=== PATIENT | female | born 1945 | race Caucasian/White ===

== ENCOUNTER 2018-06-22 15:26 | Inpatient (IN) ==
[2018-06-22] MEDS ORDERED: Bisacodyl 10 MG Supp RECTAL PRN (17:53)
[2018-06-22] MEDS ORDERED: Morphine Sulfate Inj 2 MG/ML Vial IV.PUSH PRN (17:53)
[2018-06-22] MEDS ORDERED: Magnesium Sulfate Inj 4 GM in Sodium Chlor 0.9% Inj 92 ML IV.SIG PRN (18:03)
[2018-06-22] MEDS ORDERED: Magnesium Sulfate Inj 2 GM in Sodium Chlor 0.9% Inj 96 ML IV.SIG PRN (18:03)
[2018-06-22] MEDS ORDERED: Potassium Chlor 20 mEq Premix 20 MEQ/100 ML PIGGYBACK IV.SIG PRN ×2 (18:03)
[2018-06-22] MEDS ORDERED: Magnesium Oxide 400 MG Tablet PO PRN (18:03)
[2018-06-22] MEDS ORDERED: Potassium Chloride Liq 20 MEQ/15 ML UDC PO PRN ×2 (18:03)
[2018-06-22] MEDS ORDERED: Sodium Phosphate Inj 30 MMOL in Sodium Chlor 0.9% Inj 250 ML IV.SIG PRN (18:03)
[2018-06-22] MEDS ORDERED: Potassium Phosphate 500 MG Soluble Tablet PO PRN ×2 (18:03)
[2018-06-22] MEDS ORDERED: Potassium Chlor 40 mEq Premix 40 MEQ/100 ML PIGGYBACK IV.SIG PRN ×2 (18:03)
[2018-06-22] MEDS ORDERED: Dextrose 50% in Water 50 ML Vial IV.PUSH PRN (18:03)
[2018-06-22] MEDS ORDERED: Potassium Phosphate Inj 30 MMOL in Sodium Chlor 0.9% Inj 250 ML IV.SIG PRN (18:03)
--- NOTE | 2018-06-22 18:20 | P.HPCC ---
History of Present Illness Service: Critical care medicine Primary Care Physician: UNKNOWN Chief Complaint: Abdominal pain History of Present Illness: This is a 73-year-old female. Date of admission 06/22/2018. Past medical history includes recurrent complicated urinary tract infection most recently E. coli, syncope frequent falls, coronary artery disease status post CABG, advanced age, congestive heart failure diastolic ejection fraction 55%, gastroesophageal reflux disease, depression/anxiety, essential hypertension, atrial fibrillation/2-1 flutter status post ablation with micro pacemaker placement/[employer], chronic anticoagulation, diverticulitis by history, internal and external hemorrhoids, bullous pemphigoid, osteoarthritis, hypothyroidism. She has known chronic mesenteric ischemia with SMA stenosis with collaterals present. Patient originally presented to [facility] 06/15 after syncopal event while playing cards at her [facility]. She fell backwards with a positive loss of conscious. CT of the brain revealed left occipital scalp hematoma. No acute intracranial findings. During her evaluation patient was evaluated by neurology/Dr. Garcia. EEG showed no epileptic activity. Orthostatics were positive. Ultrasound of the carotids revealed no significant stenosis negative stroke workup. Patient was evaluated by cardiology. 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 She divided by cardiology and EP cardiology. She had an AV node ablation with micro per minute pacemaker 06/20. She is currently on warfarin with a goal INR of 2.5-3.5. She was started on amiodarone 400 mg twice daily. Due to abdominal pain patient divided by gastroenterology. 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 There is also 9 mm thrombosed right SFA aneurysm. Vascular surgery was involved. Dr. Dacosta contacted Dr. Bustamante who read to evaluate the patient if transferred to [facility]. We are asked to accept this patient for evaluation. Patient has consumed diet today. She is currently not complaining of any abdominal pain. She is hemodynamically stable. In reviewing her labs her hemoglobin is 10.8. Normal white blood cell count. Her INR is 2.2. Her creatinine is 0.6. - Diagnosis (1) Chronic mesenteric ischemia (2) Celiac artery stenosis (3) Occlusion of superior mesenteric artery (4) History of cardiac radiofrequency ablation (5) Anticoagulation goal of INR 2.5 to 3.5 (6) Depression (7) Normocytic anemia (8) Recurrent UTI (9) Frequent falls (10) Hemorrhoids (11) Gastroesophageal reflux disease (12) Essential hypertension (13) Hypothyroidism (14) Advanced age (15) History of coronary artery bypass graft (16) History of mitral valve replacement (17) Generalized weakness (18) Recent head injury (19) Syncope (20) E. coli UTI Inpatient Certification: I certify that the inpatient services were ordered in accordance with Medicare regulations governing the order. This includes certification that hospital inpatient services are reasonable and necessary and in the case of services not specified as inpatient-only under 42 CFR 419.22(n), that they are appropriately provided as inpatient services in accordance to with the 2-midnight benchmark under 43 CFR 412.3(e) Estimated Total Length of Stay (Days): 5 Plans for Post Hospital Care: Not yet determined Review of Systems Constitutional: Reports anorexia, Reports fatigue, Reports lack of energy, Reports weakness, Denies body ache(s), Denies daytime sleepiness, Denies excessive sweating, Denies fever(s), Denies increased appetite, Denies malaise, Denies night sweats, Denies weight gain Eyes: Denies blind spots, Denies blurry vision, Denies bulging eyes, Denies change in vision, Denies double vision, Denies dry eyes, Denies requires corrective lenses, Denies sensitivity to light Ears, Nose, Mouth, and Throat: Reports bad breath, Reports poor balance, Denies abnormal hearing, Denies dry mouth, Denies hearing loss, Denies sore throat Cardiovascular: Reports fast heart rate, Denies chest pain, Denies chest pain at rest, Denies chest pain with activity, Denies shortness of breath, Denies shortness of breath with activity, Denies shortness of breath when lying down Respiratory: Denies chest congestion, Denies pain on inspiration, Denies pain with cough Gastrointestinal: Reports abdominal pain, Reports constipation, Reports nausea, Denies bloating, Denies change in stools, Denies coffee ground vomit, Denies vomiting, Denies vomiting blood Genitourinary: Reports urinary urgency, Denies pelvic pain, Denies urinary incontinence Musculoskeletal: Reports abnormal walking, Reports body aches, Denies decreased muscle mass, Denies muscle weakness, Denies neck pain, Denies stiffness Skin/Breast: Denies dry skin, Denies new lesions, Denies skin ulcer Neurologic: Denies confusion, Denies frequent falls, Denies headache(s), Denies lack of coordination, Denies loss of vision, Denies numbness, Denies restless legs, Denies convulsions, Denies sensory deficit Psychiatric: Reports anxiety, Reports depression, Denies confusion Endocrine: Denies cold intolerance, Denies excessive sweating Hematologic/Lymphatic: Denies easy bleeding, Denies easy bruising Allergic/Immunologic: Denies GI upset with certain foods PMFSH - Medical History Medical History: Medical History (Last Updated 06/22/18 @ 18:14 by Silver Dasilva MD) Atrial fibrillation Bullous pemphigoid Chronic anticoagulation Chronic mesenteric ischemia Congestive heart failure Depression Diverticulitis External hemorrhoids Gastroesophageal reflux disease Hypothyroidism Internal hemorrhoids Osteoarthritis Recurrent UTI - Surgical History Surgical History: Surgical History (Last Updated 06/22/18 @ 18:13 by Silver Dasilva MD) H/O maze procedure H/O mitral valve replacement H/O oophorectomy H/O tricuspid valve replacement H/O: hysterectomy History of colonoscopy Pacemaker S/P ablation of atrial flutter - Family History Family History: Family History (Last Updated 06/22/18 @ 18:14 by Silver Dasilva MD) Other Family history of heart disease - Social History I have reviewed the patient's Social History: Yes - Tobacco History Second Hand Smoke Exposure: No Tobacco Use In Past 30 Days: No Smoking Status: Never smoker - Alcohol History How Often Do You Have a Drink Containing Alcohol: Monthly or less - Substance Use History Substance History: No History of Abuse - Travel History History of Recent Travel: No Recent Travel in the [facility] Within the Last 8 Weeks: No Medications and Allergies Active Medications: Active Medications Acetaminophen (Tylenol) 650 mg PO Q6H PRN PRN Reason: Fever >101 F Hydrocodone Bitart/Acetaminophen ([place] 5/325) 1 tab PO Q4H PRN PRN Reason: PAIN SCALE 1 TO 5 Al Hydroxide/Mg Hydroxide (Milk Of Magnesia Liq) 30 ml PO Q12H PRN PRN Reason: Mild Constipation Albuterol (Albuterol Neb (Prn)) 2.5 mg NEB Q2HR NEB PRN PRN Reason: SHORTNESS OF BREATH/WHEEZING Amiodarone HCl (Cordarone) 400 mg PO Q12HR KELLEY Bisacodyl (Dulcolax Supp) 10 mg RECTAL DAILY PRN PRN Reason: SEVERE CONSITIPATION Chlorhexidine Gluconate (Chlorhexidine 2% Cloth) 3 pack TOPICAL DAILY@0400 KELLEY Stop: 06/28/18 03:59 Chlorhexidine Gluconate (Chlorhexidine 2% Cloth) 3 pack TOPICAL DAILY@0400 PRN PRN Reason: Extra cloth needed Stop: 06/28/18 03:59 Citalopram Hydrobromide (Celexa) 20 mg PO DAILY KELLEY Dextrose (D50w Vial) 50 ml IV.PUSH UNSCH PRN PRN Reason: PER HYPOGLYCEMIA PROTOCOL Glucagon (Glucagon Inj) 1 mg OTHER PRN PRN PRN Reason: for Hypoglycemia Protocol Cefepime HCl 1,000 mg/ Sodium (Chloride) 100 mls @ 200 mls/hr IV.SIG Q12H KELLEY Heparin Sodium/Dextrose (Heparin/D5w 25,000 U/250 Ml) 25,000 unit in 250 mls @ 0 mls/hr IV.CONT TITRATE PRN; Protocol PRN Reason: Per Protocol Magnesium Sulfate 4 gm/ Sodium (Chloride) 100 mls @ 50 mls/hr IV.SIG UNSCH PRN PRN Reason: For Magnesium 0.9 - 1.1 mg/dL Magnesium Sulfate 2 gm/ Sodium (Chloride) 100 mls @ 50 mls/hr IV.SIG UNSCH PRN PRN Reason: For Magnesium 1.2 - 1.6 mg/dL Potassium Chloride (Kcl 40 Meq Premix Inj) 40 meq in 100 mls @ 25 mls/hr IV.SIG Q2H PRN PRN Reason: For Potassium 2.8 - 3.2 mEq/L Potassium Chloride (Kcl 20 Meq Premix Inj) 20 meq in 100 mls @ 50 mls/hr IV.SIG Q2H PRN PRN Reason: For Potassium 3.3 - 3.5 mEq/L Potassium Chloride (Kcl 20 Meq Premix Inj) 20 meq in 100 mls @ 50 mls/hr IV.SIG Q2H PRN PRN Reason: For Potassium 2.8 - 3.2 mEq/L Potassium Phosphate 30 mmol/ (Sodium Chloride) 260 mls @ 42 mls/hr IV.SIG UNSCH PRN PRN Reason: SEE LABEL COMMENTS Sodium Phosphate 30 mmol/ (Sodium Chloride) 260 mls @ 42 mls/hr IV.SIG UNSCH PRN PRN Reason: For Phosphorus < 2.5 mg/dL Potassium Chloride (Kcl 40 Meq Premix Inj) 40 meq in 100 mls @ 25 mls/hr IV.SIG UNSCH PRN PRN Reason: For Potassium 3.3 - 3.5 mEq/L Insulin Aspart (Novolog Insulin Correctional Sugar Inj) 0 unit SQ Q6HR KELLEY; Protocol Lactulose (Lactulose Liq) 30 ml PO DAILY PRN PRN Reason: SEVERE CONSITIPATION Lisinopril (Prinivil) 10 mg PO BID [facility] Magnesium Oxide (Mag-Ox) 800 mg PO UNSCH PRN PRN Reason: For Magnesium 1.2 - 1.6 mg/dL Morphine Sulfate (Morphine Inj) 2 mg IV.PUSH Q2H PRN PRN Reason: PAIN SCALE 6 TO 10 Ondansetron HCl (Zofran Inj) 4 mg IV.PUSH Q6H PRN PRN Reason: NAUSEA OR VOMITING Pantoprazole Sodium (Protonix Inj) 40 mg IV.PUSH DAILY KELLEY Potassium Chloride (Kcl Liq) 40 meq PO UNSCH PRN PRN Reason: Potassium level 3.3-3.5 mEq/L Potassium Chloride (Kcl Liq) 40 meq PO UNSCH PRN PRN Reason: POTASSIUM LESS THAN 3.5 Potassium Phosphate (K-Phos Original) 2,000 mg PO Q4H PRN PRN Reason: Phosphorus Less Than 2.5 mg/dL Potassium Phosphate (K-Phos Original) 2,000 mg PO UNSCH PRN PRN Reason: SEE LABEL COMMENTS Senna/Docusate Sodium (Lashonda-Colace) 1 tab PO BID [facility] Sennosides (Senokot) 17.2 mg PO Q12H PRN PRN Reason: Moderate Constipation Sodium Chloride (Ns Flush) 2 ml IV.FLUSH BID [facility] Sodium Chloride (Ns Flush) 2 ml IV.FLUSH PRN PRN PRN Reason: FLUSH AFTER USING IV ACCESS Allergies Allergy/AdvReac Type Severity Reaction Status Date / Time gatifloxacin [From Tequin] Allergy Mild Rash, Verified 06/22/18 17:58 Generalized cefuroxime [From Ceftin] Allergy Generalized Verified 06/22/18 17:59 Rash cephalexin [From Keflex] Allergy Generalized Verified 06/22/18 18:02 Rash doxycycline Allergy Generalized Verified 06/22/18 18:00 Rash levofloxacin [From Levaquin] Allergy Anaphylaxis Verified 06/22/18 17:52 sulfadiazine Allergy Generalized Verified 06/22/18 18:03 Rash Exam Vital signs: Vital Signs 06/22/18 17:45 Temperature 98.4 F Pulse Rate 80 Blood Pressure 150/78 H Intake & Output 06/21/18 06/22/18 06/22/18 18:59 06:59 18:59 Weight 66.4 kg Other: Weight On Admission 66.4 kg - Constitutional no acute distress - Routine HEENT Exam Head: Present: normocephalic, atraumatic Eye: Present: EOMI, PERRL, normal accommodation ENT: Present: mucous membranes moist - Routine Neck Exam Present: supple, full ROM. Absent: JVD - Routine Chest/Breast/Axilla Exam Chest wall: Present: pacemaker. Absent: tenderness Breast: Absent: tenderness Axillae: Absent: lymphadenopathy - Routine Respiratory Exam Present: CTA bilaterally. Absent: accessory muscle use - Routine Cardiovascular Exam Present: RRR. Absent: S1, S2, murmur - Routine Abdominal Exam Present: soft, normoactive bowel sounds. Absent: tenderness, rigid - Routine Extremities Exam Absent: cyanosis, clubbing, edema - Routine Skin Exam Present: intact - Routine Neurological Exam Present: alert, oriented X3, CN II-XII intact. Absent: sensory deficit, motor deficit Septic Shock Reassessment Septic shock perfusion: reassessment completed Caprini VTE Risk Assessment Caprini VTE Risk Assessment: Moderate/High Risk (score >= 2) Caprini Risk Assessment Model: Point Value = 1 Point Value = 2 Point Value = 3 Point Value = 5 Age 41-60 Minor surgery BMI > 25 kg/m2 Swollen legs Varicose veins or History of unexplained or recurrent spontaneous Oral contraceptives or hormone replacement Sepsis (< 1 month) Serious lung disease, including pneumonia (< 1 month) Abnormal pulmonary function Acute myocardial infarction Congestive heart failure (< 1 month) History of inflammatory bowel disease Medical patient at bed rest Age 61-74 Arthroscopic surgery Major open surgery (> 45 min) Laparoscopic surgery (> 45 min) Malignancy Confined to bed (> 72 hours) Immobilizing plaster cast Central venous access Age >= 75 History of VTE Family history of VTE Factor V Leiden Prothrombin [id number] Lupus anticoagulant Anticardiolipin antibodies Elevated serum homocysteine Heparin-induced thrombocytopenia Other congenital or acquired thrombophilia Stroke (< 1 month) Elective arthroplasty Hip, pelvis, or leg fracture Acute spinal cord injury (< 1 month) Prophylaxis Regimen: Total Risk Factor Score Risk Level Prophylaxis Regimen 0-1 Low Early ambulation 2 Moderate Order ONE of the following: *Sequential Compression Device (SCD) *Heparin 5000 units SQ BID 3-4 Higher Order ONE of the following medications: *Heparin 5000 units SQ TID *Enoxaparin/Lovenox 40 mg SQ daily (WT < 150 kg, CrCl > 30 mL/min) *Enoxaparin/Lovenox 30 mg SQ daily (WT < 150 kg, CrCl > 10-29 mL/min) *Enoxaparin/Lovenox 30 mg SQ BID (WT < 150 kg, CrCl > 30 mL/min) AND/OR *Sequential Compression Device (SCD) 5 or more Highest Order ONE of the following medications: *Heparin 5000 units SQ TID (Preferred with Epidurals) *Enoxaparin/Lovenox 40 mg SQ daily (WT < 150 kg, CrCl > 30 mL/min) *Enoxaparin/Lovenox 30 mg SQ daily (WT < 150 kg, CrCl > 10-29 mL/min) *Enoxaparin/Lovenox 30 mg SQ BID (WT < 150 kg, CrCl > 30 mL/min) AND *Sequential Compression Device (SCD) Assessment and Plan - Problem List (1) Chronic mesenteric ischemia Code(s): K55.1 - Chronic vascular disorders of intestine Status: Chronic (2) Celiac artery stenosis Code(s): I77.4 - Celiac artery compression syndrome Status: Acute (3) Occlusion of superior mesenteric artery Code(s): K55.069 - Acute infarction of intestine, part and extent unspecified Status: Chronic (4) History of cardiac radiofrequency ablation Code(s): Z98.890 - Other specified postprocedural states Status: Acute (5) Anticoagulation goal of INR 2.5 to 3.5 Code(s): Z51.81 - Encounter for therapeutic drug level monitoring; Z79.01 - retirement (current) use of anticoagulants Status: Acute (6) Depression Code(s): F32.9 - Major depressive disorder, single episode, unspecified Status : Chronic (7) Normocytic anemia Code(s): D64.9 - Anemia, unspecified Status: Chronic (8) Recurrent UTI Code(s): N39.0 - Urinary tract infection, site not specified Status: Chronic (9) Frequent falls Code(s): R29.6 - Repeated falls Status: Chronic (10) Hemorrhoids Code(s): K64.9 - Unspecified hemorrhoids Status: Chronic (11) Gastroesophageal reflux disease Code(s): K21.9 - Gastro-esophageal reflux disease without esophagitis Status: Chronic (12) Essential hypertension Code(s): I10 - Essential (primary) hypertension Status: Chronic (13) Hypothyroidism Code(s): E03.9 - Hypothyroidism, unspecified Status: Chronic (14) Advanced age Code(s): R54 - Age-related physical debility Status: Chronic (15) History of coronary artery bypass graft Code(s): Z95.1 - Presence of aortocoronary bypass graft Status: Chronic (16) History of mitral valve replacement Code(s): Z95.2 - Presence of prosthetic heart valve Status: Chronic (17) Generalized weakness Code(s): R53.1 - Weakness Status: Chronic (18) Recent head injury Code(s): S09.90XA - Unspecified injury of head, initial encounter Status: Acute (19) Syncope Code(s): R55 - Syncope and collapse Status: Acute (20) E. coli UTI Code(s): N39.0 - Urinary tract infection, site not specified; B96.20 - Unspecified Escherichia coli [E. coli] as the cause of diseases classified elsewhere Status: Acute - Assessment and Plan Plan: Neuro/Psych: Major depressive disorder NOS Continue citalopram grams daily/home medication. Acetaminophen 650 mg p.o. every 6 hours as needed fever Hydrocodone/acetaminophen 5/325 1 tablet every 4 hours as needed pain 1 through 5 Morphine sulfate 2 mg IV every 2 hours as needed pain 6 through 10 CV: 2-1 atrial flutter status post AV node ablation with micro permanent pacemaker Chronic diastolic heart failure EF 55-60% Essential hypertension Coronary disease status post CABG Currently on amiodarone 400 mg twice daily. Status post AV ablation by Dr. Funk at [facility] 06/20 Previously on diltiazem 240 mg daily. This is currently on hold. Restart lisinopril 20 mg daily as 10 mg twice daily. Was on Isuprel. This is currently on hold. Resume spironolactone 25 mg daily. Resp: Nasal cannula to maintain saturations greater than equal to 92% Incentive spirometry while awake As needed albuterol aerosols every 2 hours as needed dyspnea GI: Gastroesophageal reflux disease History of internal and external hemorrhoids History of diverticulitis Constipation Advance diet as tolerated Pantoprazole for GI prophylaxis Docusate serum/senna 1 tablet twice daily for bowel regimen Abdominal CT angiogram revealed high-grade occlusion of the celiac artery origin 89%. Chronic superior mesenteric artery occlusion with collaterals present. Thrombosed 9 mm superior GI at [facility] recommended EGD and colonoscopy : Straight catheterization as needed Endo: History of hypothyroidism Check TSH Sliding scale insulin Accu-Cheks to maintain euglycemia Renal: Creatinine currently within normal limits Monitor urine output Accurate I's and O's Heme: Chronic anticoagulation with warfarin 1.5 mg daily at home. Normocytic anemia Monitor CBC daily. Follow trends. We will transition heparin drip when INR less than 2.0 for chronic mesenteric ischemia. ID: E. coli UTI Patient was treated with cefepime 1 g twice daily at [facility]. This was verified with the patient. This is verified in reviewing the medical records directly. Recheck UA MSK: Frequent falls Generalized weakness Advanced age PT evaluate and treat FEN: Replace electrolytes as clinically indicated Access -Utilize peripheral IV. Central line if indicated Prophylaxis -GI -pantoprazole -DVT -SCD/heparin drip Level 3 admission. Code Status: Full code Discussed Condition With: Patient. Dr. Bustamante. Care plan discussed all questions (6) Depression Qualifiers: Depression Type: unspecified Qualified Code(s): F32.9 - Major depressive disorder, single episode, unspecified (10) Hemorrhoids Qualifiers: Hemorrhoid type: unspecified Qualified Code(s): K64.9 - Unspecified hemorrhoids (11) Gastroesophageal reflux disease Qualifiers: Esophagitis presence: esophagitis presence not specified Qualified Code(s): K21.9 - Gastro-esophageal reflux disease without esophagitis (13) Hypothyroidism Qualifiers: Hypothyroidism type: unspecified Qualified Code(s): E03.9 - Hypothyroidism, unspecified (19) Syncope Qualifiers: Syncope type: unspecified Qualified Code(s): R55 - Syncope and collapse
[2018-06-22 19:07] LABS: Baso # (Auto) 0.1 th/mm3 (0.0-0.2); Baso % (Auto) 1.2 % (0.0-2.0); Eos # (Auto) 0.2 th/mm3 (0.0-0.4); Eos % (Auto) 4.5 % (0.0-4.0); Hematocrit 35.5 % (35.0-46.0); Mean Corpuscular HGB Conc 33.7 % (32.0-36.0); Mean Corpuscular Volume 103.9 fL (80.0-100.0); Mean Platelet Volume 6.2 fL (7.0-11.0); Mono # (Auto) 0.5 th/mm3 (0.0-0.9); Mono % (Auto) 10.3 % (0.0-8.0); Neut # (Auto) 3.4 th/mm3 (1.8-7.7); Platelet Count 174 th/mm3 (150-450); Red Blood Count 3.42 mil/mm3 (4.00-5.30); Red Cell Distribution Width 14.3 % (11.6-17.2); White Blood Count 5.3 th/mm3 (4.0-11.0)
--- NOTE | 2018-06-22 19:17 | XR ---
EXAM DATE: 06/22/2018 6:52 PM EST AGE/SEX: 73 years / Female INDICATIONS: Chest pain. Shortness of breath. CLINICAL DATA: This is the patient's initial encounter. Patient reports that signs and symptoms have been present for 1 day and indicates a pain score of 0/10. MEDICAL/SURGICAL HISTORY: None. None. COMPARISON: [facility], XR CHEST PA AND LAT, 03/19/2018. . FINDINGS: Multiple cardiac leads are coiled over the lower left chest. Moderate patient rotation towards the le ft. The heart is mildly enlarged, similar to prior examination. There are some patchy areas of infilt rate in the left lower lung which appear to cause loss of delineation of the medial left hemidiaphrag m. There is linear atelectasis in the lower right lung without focal infiltrate. There is focal event ration lateral right hemidiaphragm unchanged from prior. Evidence prior median sternotomy and valve r eplacement. CONCLUSION: Left lower lung partially consolidative infiltrate. Electronically signed by: Thad Harris MD Board Certified Radiologist 06/22/2018 7:15 PM EST
[2018-06-22 19:18] LABS: Activated Partial Thrombo Time 33.9 sec (23.4-31.7); INR 2.2 Ratio; Prothrombin Time 22.5 sec (9.8-11.6)
[2018-06-22 19:24] LABS: Alanine Aminotransferase 22 U/L (10-53); Albumin 3.2 g/dL (3.4-5.0); Amylase 43 U/L (25-115); Anion Gap 7 meq/L (5-15); Aspartate Aminotransferase 11 U/L (15-37); Blood Urea Nitrogen 12 mg/dL (7-18); Calcium 8.7 mg/dL (8.5-10.1); Carbon Dioxide 25.7 meq/L (21.0-32.0); Chloride 104 meq/L (98-107); Glomerular Filtration Rate 87 mL/min (>89); Glucose,Random 84 mg/dL (74-106); Lipase 120 U/L (73-393); Magnesium 2.4 mg/dL (1.5-2.5); Potassium 4.1 meq/L (3.5-5.1); Sodium 137 meq/L (136-145)
[2018-06-22 19:28] LABS: Alkaline Phosphatase 68 U/L (45-117); Phosphorus 2.3 mg/dL (2.5-4.9); Total Protein 6.2 g/dL (6.4-8.2)
[2018-06-22 19:31] LABS: Creatine Kinase 30 U/L (26-192)
[2018-06-22 19:32] LABS: Bacteria,Urine Occasional /hpf; Bilirubin,Urine Negative (Negative); Clarity,Urine Hazy (Clear); Color,Urine Yellow (Yellw/Straw); Glucose,Urine (UA) Negative (Negative); Leukocyte Esterase,Urine Small (Negative); Mucus,Urine Few /lpf (Occasional); Nitrite,Urine Negative (Negative); Squamous Epithelial Cell,Urine 1 /hpf (0-5)
[2018-06-22] MEDS: Senna/Docusate Sodium 8.6/50 MG Tablet PO SCH (20:26)
[2018-06-22] MEDS: Lisinopril 10 MG Tablet PO SCH (20:26)
[2018-06-22] MEDS: Amiodarone 200 MG Tablet PO SCH (20:26)
[2018-06-22] MEDS: Heparin Drip 25,000 UNIT/250 ML BAG IV.CONT PRN (20:28)
--- NOTE | 2018-06-22 20:41 | ECG ---
Date Performed: 06/22/2018 Time Performed: 18:44:58 PTAGE: 73 years EKG: Ventricular pacing Pacemaker rhythm - no further analysis Abnormal ECG NO PREVIOUS TRACING DOCTOR: oKfi Vigil Interpretating Date/Time 06/22/2018 20:39:16
[2018-06-23] MEDS: Insulin NovoLOG Aspart Correctional Sugar Inj SQ SCH ×4 (00:20→18:35)
[2018-06-23] MEDS ORDERED: Chlorhexidine Gluconate 2% 1 Pack (2 Cloths) TOPICAL PRN (04:00)
[2018-06-23 04:25] LABS: Eos # (Auto) 0.3 th/mm3 (0.0-0.4); Hematocrit 31.9 % (35.0-46.0); Hemoglobin 10.8 gm/dL (11.6-15.3); Lymph # (Auto) 1.2 th/mm3 (1.0-4.8); Lymph % (Auto) 27.6 % (9.0-44.0); Mean Corpuscular HGB Conc 33.9 % (32.0-36.0); Mean Corpuscular Hemoglobin 35.7 pg (27.0-34.0); Mean Corpuscular Volume 105.2 fL (80.0-100.0); Mean Platelet Volume 6.2 fL (7.0-11.0); Mono # (Auto) 0.5 th/mm3 (0.0-0.9); Mono % (Auto) 12.3 % (0.0-8.0); Neut # (Auto) 2.3 th/mm3 (1.8-7.7); Neut % (Auto) 53.1 % (16.0-70.0); Platelet Count 165 th/mm3 (150-450); Red Blood Count 3.04 mil/mm3 (4.00-5.30); Red Cell Distribution Width 14.3 % (11.6-17.2); White Blood Count 4.4 th/mm3 (4.0-11.0)
[2018-06-23 04:39] LABS: INR 2.2 Ratio; Prothrombin Time 22.6 sec (9.8-11.6)
[2018-06-23 04:45] LABS: Albumin 2.8 g/dL (3.4-5.0); Anion Gap 6 meq/L (5-15); Aspartate Aminotransferase 11 U/L (15-37); Blood Urea Nitrogen 9 mg/dL (7-18); Calcium 8.2 mg/dL (8.5-10.1); Carbon Dioxide 28.5 meq/L (21.0-32.0); Chloride 106 meq/L (98-107); Glomerular Filtration Rate 85 mL/min (>89); Glucose,Random 80 mg/dL (74-106); Magnesium 2.3 mg/dL (1.5-2.5); Potassium 4.1 meq/L (3.5-5.1); Sodium 140 meq/L (136-145)
[2018-06-23 04:46] LABS: Alanine Aminotransferase 19 U/L (10-53); Phosphorus 2.4 mg/dL (2.5-4.9)
[2018-06-23 04:48] LABS: Alkaline Phosphatase 57 U/L (45-117); Total Protein 5.6 g/dL (6.4-8.2)
[2018-06-23 05:20] LABS: Activated Partial Thrombo Time 105.2 sec (23.4-31.7)
[2018-06-23] MEDS: Chlorhexidine Gluconate 2% 1 Pack (2 Cloths) TOPICAL SCH (06:35)
--- NOTE | 2018-06-23 07:56 | P.PNCC ---
Subjective Subjective Remarks/Hospital Course: This is a 73-year-old female. Date of admission 06/22/2018. Past medical history includes recurrent complicated urinary tract infection most recently E. coli, syncope frequent falls, coronary artery disease status post CABG, advanced age, congestive heart failure diastolic ejection fraction 55%, gastroesophageal reflux disease, depression/anxiety, essential hypertension, atrial fibrillation/2-1 flutter status post ablation with micro pacemaker placement/[employer], chronic anticoagulation, diverticulitis by history, internal and external hemorrhoids, bullous pemphigoid, osteoarthritis, hypothyroidism. She has known chronic mesenteric ischemia with SMA stenosis with collaterals present. Patient originally presented to [facility] [place] 06/15 after syncopal event while playing cards at her [place]. She fell backwards with a positive loss of conscious. CT of the brain revealed left occipital scalp hematoma. No acute intracranial findings. During her evaluation patient was evaluated by neurology/Dr. Garcia. EEG showed no epileptic activity. Orthostatics were positive. Ultrasound of the carotids revealed no significant stenosis negative stroke workup. Patient was evaluated by cardiology. 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 She divided by cardiology and EP cardiology. She had an AV node ablation with micro per minute pacemaker 06/20. She is currently on warfarin with a goal INR of 2.5-3.5. She was started on amiodarone 400 mg twice daily. Due to abdominal pain patient divided by gastroenterology. 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 There is also 9 mm thrombosed right SFA aneurysm. Vascular surgery was involved. Dr. Dacosta contacted Dr. Bustamante who read to evaluate the patient if transferred to [facility]. We are asked to accept this patient for evaluation. Patient has consumed diet today. She is currently not complaining of any abdominal pain. She is hemodynamically stable. In reviewing her labs her hemoglobin is 10.8. Normal white blood cell count. Her INR is 2.2. Her creatinine is 0.6. Subjective: 06/23: Resting in chair in no acute distress. Complaining of constipation no bowel movement times 1 week. Blood pressure controlled. Paced adequately. On heparin drip 900 units an hour. Objective Vital Signs / I&O: Vital Signs 06/22/18 17:45 06/22/18 18:35 06/22/18 19:00 Temperature 98.4 F 98.4 F 98.3 F Pulse Rate 80 80 79 Respiratory Rate 18 18 Blood Pressure 150/78 H 150/78 H 142/85 H Pulse Oximetry 99 06/22/18 20:00 06/23/18 00:00 06/23/18 04:00 Temperature 98.0 F Pulse Rate 79 Respiratory Rate 18 18 Blood Pressure 121/69 Pulse Oximetry 99 97 06/23/18 07:38 Temperature Pulse Rate Respiratory Rate Blood Pressure Pulse Oximetry 97 Intake & Output 06/22/18 06/23/18 06/23/18 18:59 06:59 18:59 Intake Total 200 / 200 100 / 100 Output Total 700 / 700 Balance 200 / 200 -600 / -600 Weight 66.4 kg 68 kg Intake: IV 100 / 100 Maxipime Inj 1,000 MG In NS Inj 100 / 100 100 ML @ 200 mls/hr IV.SIG Q12H [facility] Rx#:[id number] Oral 200 / 200 Output: Urine 700 / 700 Other: Date of Last Bowel Movement 06/22/18 # Bowel Movements 1 1 Weight On Admission 66.4 kg Result Diagrams: 06/23/18 04:00 06/23/18 04:00 Imaging: Chest X-Ray 06/22/18 17:56 CONCLUSION: Left lower lung partially consolidative infiltrate. Objective Remarks: GENERAL: 73-year-old female resting in chair in no acute distress SKIN: Warm and dry. HEAD: Atraumatic. Normocephalic. EYES: Pupils equal and round. No scleral icterus. No injection or drainage. ENT: No nasal bleeding or discharge. Mucous membranes pink and moist. NECK: Trachea midline. No JVD. CARDIOVASCULAR: Ventricular paced. S1, S2 no S4. 1/6 systolic murmur. RESPIRATORY: No accessory muscle use. Clear to auscultation. Breath sounds equal bilaterally. GASTROINTESTINAL: Abdomen soft, non-tender, nondistended. Hepatic and splenic margins not palpable. MUSCULOSKELETAL: Extremities without clubbing, cyanosis, or edema. No obvious deformities. NEUROLOGICAL: Awake and alert. No obvious cranial nerve deficits. Motor grossly within normal limits. Five out of 5 muscle strength in the arms and legs. Normal speech. PSYCHIATRIC: Appropriate mood and affect; insight and judgment normal. Assessment and Plan - Problem List (1) Chronic mesenteric ischemia Code(s): K55.1 - Chronic vascular disorders of intestine Status: Chronic (2) Celiac artery stenosis Code(s): I77.4 - Celiac artery compression syndrome Status: Acute (3) Occlusion of superior mesenteric artery Code(s): K55.069 - Acute infarction of intestine, part and extent unspecified Status: Chronic (4) History of cardiac radiofrequency ablation Code(s): Z98.890 - Other specified postprocedural states Status: Acute (5) Anticoagulation goal of INR 2.5 to 3.5 Code(s): Z51.81 - Encounter for therapeutic drug level monitoring; Z79.01 - alf (current) use of anticoagulants Status: Acute (6) Depression Code(s): F32.9 - Major depressive disorder, single episode, unspecified Status : Chronic (7) Normocytic anemia Code(s): D64.9 - Anemia, unspecified Status: Chronic (8) Recurrent UTI Code(s): N39.0 - Urinary tract infection, site not specified Status: Chronic (9) Frequent falls Code(s): R29.6 - Repeated falls Status: Chronic (10) Hemorrhoids Code(s): K64.9 - Unspecified hemorrhoids Status: Chronic (11) Gastroesophageal reflux disease Code(s): K21.9 - Gastro-esophageal reflux disease without esophagitis Status: Chronic (12) Essential hypertension Code(s): I10 - Essential (primary) hypertension Status: Chronic (13) Hypothyroidism Code(s): E03.9 - Hypothyroidism, unspecified Status: Chronic (14) Advanced age Code(s): R54 - Age-related physical debility Status: Chronic (15) History of coronary artery bypass graft Code(s): Z95.1 - Presence of aortocoronary bypass graft Status: Chronic (16) History of mitral valve replacement Code(s): Z95.2 - Presence of prosthetic heart valve Status: Chronic (17) Generalized weakness Code(s): R53.1 - Weakness Status: Chronic (18) Recent head injury Code(s): S09.90XA - Unspecified injury of head, initial encounter Status: Acute (19) Syncope Code(s): R55 - Syncope and collapse Status: Acute (20) E. coli UTI Code(s): N39.0 - Urinary tract infection, site not specified; B96.20 - Unspecified Escherichia coli [E. coli] as the cause of diseases classified elsewhere Status: Acute - Assessment and Plan Plan: Neuro/Psych: Major depressive disorder NOS Continue citalopram grams daily/home medication. Acetaminophen 650 mg p.o. every 6 hours as needed fever Hydrocodone/acetaminophen 5/325 1 tablet every 4 hours as needed pain 1 through 5 Morphine sulfate 2 mg IV every 2 hours as needed pain 6 through 10 CV: 2-1 atrial flutter status post AV node ablation with micro permanent pacemaker Chronic diastolic heart failure EF 55-60% Essential hypertension Coronary disease status post CABG Currently on amiodarone 400 mg twice daily. Status post AV ablation by Dr. Funk at [facility] 06/20 Previously on diltiazem 240 mg daily. This is currently on hold. Restart lisinopril 20 mg daily as 10 mg twice daily. Was on Isuprel. This is currently on hold. Resume spironolactone 25 mg daily. Resp: Nasal cannula to maintain saturations greater than equal to 92% Incentive spirometry while awake As needed albuterol aerosols every 2 hours as needed dyspnea GI: Gastroesophageal reflux disease History of internal and external hemorrhoids History of diverticulitis Constipation Hypoalbuminemia Advance diet as tolerated Pantoprazole for GI prophylaxis Docusate serum/senna 1 tablet twice daily for bowel regimen add polythene glycol centigrams twice daily and lactulose 30 cc twice daily to bowel regimen. 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 Thrombosed 9 mm superior GI at [facility] recommended EGD and colonoscopy : Straight catheterization as needed Endo: History of hypothyroidism Check TSH Sliding scale insulin Accu-Cheks to maintain euglycemia Renal: Creatinine currently within normal limits Monitor urine output Accurate I's and O's Heme: Chronic anticoagulation with warfarin 1.5 mg daily at home. Macrocytic anemia Monitor CBC daily. Follow trends. We will transition heparin drip when INR less than 2.5 for chronic mesenteric ischemiaatrial fibrillate. Currently on 900 units an hour. INR currently 2.2 ID: E. coli UTI Patient was treated with cefepime 1 g twice daily at [facility]. This was verified with the patient. This is verified in reviewing the medical records directly. Recheck UA MSK: Frequent falls Generalized weakness Advanced age PT evaluate and treat FEN: Hypophosphatemia Replace electrolytes as clinically indicated Access -Utilize peripheral IV. Central line if indicated Prophylaxis -GI -pantoprazole -DVT -SCD/heparin drip Level 3 admission. (6) Depression Qualifiers: Depression Type: unspecified Qualified Code(s): F32.9 - Major depressive disorder, single episode, unspecified (10) Hemorrhoids Qualifiers: Hemorrhoid type: unspecified Qualified Code(s): K64.9 - Unspecified hemorrhoids (11) Gastroesophageal reflux disease Qualifiers: Esophagitis presence: esophagitis presence not specified Qualified Code(s): K21.9 - Gastro-esophageal reflux disease without esophagitis (13) Hypothyroidism Qualifiers: Hypothyroidism type: unspecified Qualified Code(s): E03.9 - Hypothyroidism, unspecified (19) Syncope Qualifiers: Syncope type: unspecified Qualified Code(s): R55 - Syncope and collapse
--- NOTE | 2018-06-23 09:41 | XR ---
EXAM DATE: 06/23/2018 9:34 AM EST AGE/SEX: 73 years / Female INDICATIONS: Constipation. CLINICAL DATA: This is the patient's initial encounter. Patient reports that signs and symptoms have been present for 1 week and indicates a pain score of 0/10. MEDICAL/SURGICAL HISTORY: None. Hysterectomy. Oophorectomy. COMPARISON: No prior exams available for comparison. FINDINGS: The abdominal bowel gas pattern is normal. No abnormal masses, calcifications, or organomegaly is s een. The osseous structures are unremarkable. Moderate vascular calcifications. Degenerative changes lower lumbar spine. CONCLUSION: Nonspecific bowel gas pattern, only minimal stool. Electronically signed by: Rivera Bull MD Board Certified Radiologist 06/23/2018 9:39 AM EST
[2018-06-23] MEDS ORDERED: Sodium Glycerophosphate Inj 15 MMOL in Sodium Chlor 0.9% Inj 150 ML IV.SIG ONE (10:00)
--- NOTE | 2018-06-23 10:57 | P.CONVS ---
History of Present Illness Service: vascular surgery Consult date: 06/23/18 Primary Care Provider: UNKNOWN Chief Complaint: Abdominal pain History of Present Illness: 73-year-old female with a past medical history of atrial flutter and chronic abdominal pain. The patient was was diagnosed with superior mesenteric artery occlusion approximately 2 years ago. She has been having postprandial abdominal pain. She reports left sided abdominal pain that was previously diagnosed as diverticulitis and constipation. She denies any chest pain or shortness of breath. Review of Systems All other systems reviewed negative except as stated in HPI [facility] - Medical History Medical History: Medical History (Last Updated 06/22/18 @ 18:14 by Silver Dasilva MD) Atrial fibrillation Bullous pemphigoid Chronic anticoagulation Chronic mesenteric ischemia Congestive heart failure Depression Diverticulitis External hemorrhoids Gastroesophageal reflux disease Hypothyroidism Internal hemorrhoids Osteoarthritis Recurrent UTI - Surgical History Surgical History: Surgical History (Last Updated 06/22/18 @ 18:13 by Silver Dasilva MD) H/O maze procedure H/O mitral valve replacement H/O oophorectomy H/O tricuspid valve replacement H/O: hysterectomy History of colonoscopy Pacemaker S/P ablation of atrial flutter - Family History Family History: Family History (Last Updated 06/22/18 @ 18:14 by Silver Dasilva MD) Other Family history of heart disease - Tobacco History Second Hand Smoke Exposure: No Tobacco Use In Past 30 Days: No Smoking Status: Never smoker - Alcohol History How Often Do You Have a Drink Containing Alcohol: Monthly or less - Substance Use History Substance History: No History of Abuse - Travel History History of Recent Travel: No Recent Travel in the [facility] Within the Last 8 Weeks: No Medications and Allergies Active Medications: Active Medications Acetaminophen (Tylenol) 650 mg PO Q6H PRN PRN Reason: Fever >101 F Hydrocodone Bitart/Acetaminophen (Kersey 5/325) 1 tab PO Q4H PRN PRN Reason: PAIN SCALE 1 TO 5 Al Hydroxide/Mg Hydroxide (Milk Of Magnesia Liq) 30 ml PO Q12H PRN PRN Reason: Mild Constipation Last Admin: 06/22/18 20:26 Dose: 30 ml Albuterol (Albuterol Neb (Prn)) 2.5 mg NEB Q2HR NEB PRN PRN Reason: SHORTNESS OF BREATH/WHEEZING Amiodarone HCl (Cordarone) 400 mg PO Q12HR [facility] Last Admin: 06/22/18 20:26 Dose: 400 mg Bisacodyl (Dulcolax Supp) 10 mg RECTAL DAILY PRN PRN Reason: SEVERE CONSITIPATION Chlorhexidine Gluconate (Chlorhexidine 2% Cloth) 3 pack TOPICAL DAILY@0400 [facility] Stop: 06/28/18 03:59 Last Admin: 06/23/18 06:35 Dose: Not Given Chlorhexidine Gluconate (Chlorhexidine 2% Cloth) 3 pack TOPICAL DAILY@0400 PRN PRN Reason: Extra cloth needed Stop: 06/28/18 03:59 Citalopram Hydrobromide (Celexa) 20 mg PO DAILY [facility] Dextrose (D50w Vial) 50 ml IV.PUSH UNSCH PRN PRN Reason: PER HYPOGLYCEMIA PROTOCOL Glucagon (Glucagon Inj) 1 mg OTHER PRN PRN PRN Reason: for Hypoglycemia Protocol Cefepime HCl 1,000 mg/ Sodium (Chloride) 100 mls @ 200 mls/hr IV.SIG Q12H [facility] Last Infusion: 06/22/18 21:00 Dose: Infused Heparin Sodium/Dextrose (Heparin/D5w 25,000 U/250 Ml) 25,000 unit in 250 mls @ 12 mls/hr IV.CONT TITRATE PRN; Protocol PRN Reason: Per Protocol Last Admin: 06/22/18 20:28 Dose: 1,200 units/hr, 12 mls/hr Magnesium Sulfate 4 gm/ Sodium (Chloride) 100 mls @ 50 mls/hr IV.SIG UNSCH PRN PRN Reason: For Magnesium 0.9 - 1.1 mg/dL Magnesium Sulfate 2 gm/ Sodium (Chloride) 100 mls @ 50 mls/hr IV.SIG UNSCH PRN PRN Reason: For Magnesium 1.2 - 1.6 mg/dL Potassium Chloride (Kcl 40 Meq Premix Inj) 40 meq in 100 mls @ 25 mls/hr IV.SIG Q2H PRN PRN Reason: For Potassium 2.8 - 3.2 mEq/L Potassium Chloride (Kcl 20 Meq Premix Inj) 20 meq in 100 mls @ 50 mls/hr IV.SIG Q2H PRN PRN Reason: For Potassium 3.3 - 3.5 mEq/L Potassium Chloride (Kcl 20 Meq Premix Inj) 20 meq in 100 mls @ 50 mls/hr IV.SIG Q2H PRN PRN Reason: For Potassium 2.8 - 3.2 mEq/L Potassium Phosphate 30 mmol/ (Sodium Chloride) 260 mls @ 42 mls/hr IV.SIG UNSCH PRN PRN Reason: SEE LABEL COMMENTS Sodium Phosphate 30 mmol/ (Sodium Chloride) 260 mls @ 42 mls/hr IV.SIG UNSCH PRN PRN Reason: For Phosphorus < 2.5 mg/dL Potassium Chloride (Kcl 40 Meq Premix Inj) 40 meq in 100 mls @ 25 mls/hr IV.SIG UNSCH PRN PRN Reason: For Potassium 3.3 - 3.5 mEq/L Sodium Glycerophosphate 15 (mmol/ Sodium Chloride) 165 mls @ 40 mls/hr IV.SIG ONCE ONE Stop: 06/23/18 14:07 Insulin Aspart (Novolog Insulin Correctional Sugar Inj) 0 unit SQ Q6HR [facility]; Protocol Last Admin: 06/23/18 06:35 Dose: Not Given Lactulose (Lactulose Liq) 30 ml PO DAILY PRN PRN Reason: SEVERE CONSITIPATION Lactulose (Lactulose Liq) 30 ml PO BID [facility] Lisinopril (Prinivil) 10 mg PO BID [facility] Last Admin: 06/22/18 20:26 Dose: 10 mg Magnesium Oxide (Mag-Ox) 800 mg PO UNSCH PRN PRN Reason: For Magnesium 1.2 - 1.6 mg/dL Morphine Sulfate (Morphine Inj) 2 mg IV.PUSH Q2H PRN PRN Reason: PAIN SCALE 6 TO 10 Ondansetron HCl (Zofran Inj) 4 mg IV.PUSH Q6H PRN PRN Reason: NAUSEA OR VOMITING Pantoprazole Sodium (Protonix Inj) 40 mg IV.PUSH DAILY [facility] Polyethylene Glycol (Miralax) 17 gm PO BID [facility] Potassium Chloride (Kcl Liq) 40 meq PO UNSCH PRN PRN Reason: Potassium level 3.3-3.5 mEq/L Potassium Chloride (Kcl Liq) 40 meq PO UNSCH PRN PRN Reason: POTASSIUM LESS THAN 3.5 Potassium Phosphate (K-Phos Original) 2,000 mg PO Q4H PRN PRN Reason: Phosphorus Less Than 2.5 mg/dL Potassium Phosphate (K-Phos Original) 2,000 mg PO UNSCH PRN PRN Reason: SEE LABEL COMMENTS Senna/Docusate Sodium (Lashonda-Colace) 1 tab PO BID [facility] Last Admin: 06/22/18 20:26 Dose: 1 tab Sennosides (Senokot) 17.2 mg PO Q12H PRN PRN Reason: Moderate Constipation Sodium Chloride (Ns Flush) 2 ml IV.FLUSH BID [facility] Last Admin: 06/22/18 21:48 Dose: Not Given Sodium Chloride (Ns Flush) 2 ml IV.FLUSH PRN PRN PRN Reason: FLUSH AFTER USING IV ACCESS Spironolactone (Aldactone) 25 mg PO DAILY [facility] Allergies Allergy/AdvReac Type Severity Reaction Status Date / Time gatifloxacin [From Tequin] Allergy Mild Rash, Verified 06/22/18 17:58 Generalized cefuroxime [From Ceftin] Allergy Generalized Verified 06/22/18 17:59 Rash cephalexin [From Keflex] Allergy Generalized Verified 06/22/18 18:02 Rash doxycycline Allergy Generalized Verified 06/22/18 18:00 Rash levofloxacin [From Levaquin] Allergy Anaphylaxis Verified 06/22/18 17:52 sulfadiazine Allergy Generalized Verified 06/22/18 18:03 Rash Physical Exam Vital Signs / I&O: Vital Signs 06/22/18 17:45 06/22/18 18:35 06/22/18 19:00 Temperature 98.4 F 98.4 F 98.3 F Pulse Rate 80 80 79 Respiratory Rate 18 18 Blood Pressure 150/78 H 150/78 H 142/85 H Pulse Oximetry 99 06/22/18 20:00 06/23/18 00:00 06/23/18 04:00 Temperature 98.0 F Pulse Rate 79 Respiratory Rate 18 18 Blood Pressure 121/69 Pulse Oximetry 99 97 06/23/18 07:38 Temperature Pulse Rate Respiratory Rate Blood Pressure Pulse Oximetry 97 Intake & Output 06/22/18 06/23/18 06/23/18 18:59 06:59 18:59 Intake Total 200 / 200 100 / 100 Output Total 700 / 700 Balance 200 / 200 -600 / -600 Weight 66.4 kg 68 kg Intake: IV 100 / 100 Maxipime Inj 1,000 MG In NS Inj 100 / 100 100 ML @ 200 mls/hr IV.SIG Q12H [facility] Rx#:[id number] Oral 200 / 200 Output: Urine 700 / 700 Other: Date of Last Bowel Movement 06/22/18 # Bowel Movements 1 1 Weight On Admission 66.4 kg Neuro: Alert oriented x3 HEENT: Normocephalic atraumatic Neck: Supple Heart: S1-S2, regular rate Lungs: Clear to auscultate Abdomen: Soft, distended, nontender to palpation, no rebound, no peritoneal sign Vascular: Palpable femoral pulses bilaterally Extremities: Warm, dry Laboratory Results - last 24 hr 06/22/18 06/22/18 06/22/18 06:57 06:57 06:57 WBC 5.3 RBC 3.42 L Hgb 12.0 Hct 35.5 MCV 103.9 H MCH 35.0 H MCHC 33.7 RDW 14.3 Plt Count 174 MPV 6.2 L Neut % (Auto) 65.0 Lymph % (Auto) 19.0 [place] % (Auto) 10.3 H Eos % (Auto) 4.5 H Baso % (Auto) 1.2 Neut # (Auto) 3.4 Lymph # (Auto) 1.0 [place] # (Auto) 0.5 Eos # (Auto) 0.2 Baso # (Auto) 0.1 WBC Differential . Differential Comment Auto diff final PT INR APTT Fibrinogen Sodium Potassium Chloride Carbon Dioxide Anion Gap BUN Creatinine Estimated GFR POC Glucose Random Glucose Lactic Acid 0.8 Calcium Phosphorus Magnesium Total Bilirubin AST ALT Alkaline Phosphatase Ammonia 14 Total Creatine Kinase Total Protein Albumin Amylase Lipase Urine Color Urine Clarity Urine pH Ur Specific [place] Urine Protein Urine Glucose (UA) Urine Ketones Urine Occult Blood Urine Nitrate Urine Bilirubin Urine Urobilinogen Ur Leukocyte Esterase Urine RBC Urine WBC Ur Squamous Epith Cells Urine Bacteria Urine Mucus Micro UA Comment Ur Microscopic Review Urine Culture Comments Nasal Screen MRSA (PCR) 06/22/18 06/22/18 06/22/18 06:57 06:57 18:30 WBC RBC Hgb Hct MCV MCH MCHC RDW Plt Count MPV Neut % (Auto) Lymph % (Auto) [place] % (Auto) Eos % (Auto) Baso % (Auto) Neut # (Auto) Lymph # (Auto) [place] # (Auto) Eos # (Auto) Baso # (Auto) WBC Differential Differential Comment PT 22.5 H INR 2.2 APTT 33.9 H Fibrinogen 303 Sodium 137 Potassium 4.1 Chloride 104 Carbon Dioxide 25.7 Anion Gap 7 BUN 12 Creatinine 0.67 Estimated GFR 87 L POC Glucose Random Glucose 84 Lactic Acid Calcium 8.7 Phosphorus 2.3 L Magnesium 2.4 Total Bilirubin 0.5 AST 11 L ALT 22 Alkaline Phosphatase 68 Ammonia Total Creatine Kinase 30 Total Protein 6.2 L Albumin 3.2 L Amylase 43 Lipase 120 Urine Color Yellow Urine Clarity Hazy H Urine pH 5.0 Ur Specific [place] 1.010 Urine Protein Negative Urine Glucose (UA) Negative Urine Ketones Negative Urine Occult Blood Small H Urine Nitrate Negative Urine Bilirubin Negative Urine Urobilinogen Less than 2 Ur Leukocyte Esterase Small H Urine RBC Less than 1 Urine WBC 2 Ur Squamous Epith Cells 1 Urine Bacteria Occasional H Urine Mucus Few H Micro UA Comment Culture not ind Ur Microscopic Review Not Reportable Urine Culture Comments Culture not ind Nasal Screen MRSA (PCR) 06/23/18 06/23/18 06/23/18 00:07 00:15 04:00 WBC 4.4 RBC 3.04 L Hgb 10.8 L Hct 31.9 L MCV 105.2 H MCH 35.7 H MCHC 33.9 RDW 14.3 Plt Count 165 MPV 6.2 L Neut % (Auto) 53.1 Lymph % (Auto) 27.6 [place] % (Auto) 12.3 H Eos % (Auto) 6.0 H Baso % (Auto) 1.0 Neut # (Auto) 2.3 Lymph # (Auto) 1.2 [place] # (Auto) 0.5 Eos # (Auto) 0.3 Baso # (Auto) 0.0 WBC Differential . Differential Comment Auto diff final PT INR APTT Fibrinogen Sodium Potassium Chloride Carbon Dioxide Anion Gap BUN Creatinine Estimated GFR POC Glucose 102 Random Glucose Lactic Acid Calcium Phosphorus Magnesium Total Bilirubin AST ALT Alkaline Phosphatase Ammonia Total Creatine Kinase Total Protein Albumin Amylase Lipase Urine Color Urine Clarity Urine pH Ur Specific [place] Urine Protein Urine Glucose (UA) Urine Ketones Urine Occult Blood Urine Nitrate Urine Bilirubin Urine Urobilinogen Ur Leukocyte Esterase Urine RBC Urine WBC Ur Squamous Epith Cells Urine Bacteria Urine Mucus Micro UA Comment Ur Microscopic Review Urine Culture Comments Nasal Screen MRSA (PCR) Not detected 06/23/18 06/23/18 06/23/18 04:00 04:00 05:58 WBC RBC Hgb Hct MCV MCH MCHC RDW Plt Count MPV Neut % (Auto) Lymph % (Auto) [place] % (Auto) Eos % (Auto) Baso % (Auto) Neut # (Auto) Lymph # (Auto) [place] # (Auto) Eos # (Auto) Baso # (Auto) WBC Differential Differential Comment PT 22.6 H INR 2.2 APTT 105.2 H* D 62.0 H D Fibrinogen Sodium 140 Potassium 4.1 Chloride 106 Carbon Dioxide 28.5 Anion Gap 6 BUN 9 Creatinine 0.68 Estimated GFR 85 L POC Glucose Random Glucose 80 Lactic Acid Calcium 8.2 L Phosphorus 2.4 L Magnesium 2.3 Total Bilirubin 0.6 AST 11 L ALT 19 Alkaline Phosphatase 57 Ammonia Total Creatine Kinase Total Protein 5.6 L D Albumin 2.8 L Amylase Lipase Urine Color Urine Clarity Urine pH Ur Specific [place] Urine Protein Urine Glucose (UA) Urine Ketones Urine Occult Blood Urine Nitrate Urine Bilirubin Urine Urobilinogen Ur Leukocyte Esterase Urine RBC Urine WBC Ur Squamous Epith Cells Urine Bacteria Urine Mucus Micro UA Comment Ur Microscopic Review Urine Culture Comments Nasal Screen MRSA (PCR) Impressions Chest X-Ray 06/22/18 17:56 CONCLUSION: Left lower lung partially consolidative infiltrate. Abdomen X-Ray 06/23/18 00:00 CONCLUSION: Nonspecific bowel gas pattern, only minimal stool. Assessment and Plan - Assessment (1) Chronic mesenteric ischemia Code(s): K55.1 - Chronic vascular disorders of intestine Status: Chronic - Plan Patient has typical/atypical symptoms of chronic mesenteric ischemia. I reviewed the CT angiography. There is a long segment chronic occlusion of the superior mesenteric artery. This lesion is not amendable for endovascular revascularization. Large celiac artery with abundant of collateral flow to the distal superior mesenteric artery. There is 80% stenosis of the proximal celiac artery. I believe that her symptoms will prove with celiac artery stenting given the size of the vessel and the evidence of collateral flow to the distal superior mesenteric artery. I explained to the patient her options which includes antegrade aorta mesenteric bypass versus celiac artery stenting. She agreed to proceed with the celiac artery stenting with the understanding that she may eventually need bypass surgery. I will plan angiogram in a.m. Den Rankin MD [facility]
[2018-06-23] MEDS: Pantoprazole Inj 40 MG Vial IV.PUSH SCH (11:14)
[2018-06-23] MEDS: Polyethylene Glycol 3350 17 GM Packet PO SCH ×2 (11:14→21:09)
[2018-06-23] MEDS: Amiodarone 200 MG Tablet PO SCH ×2 (11:15→21:07)
[2018-06-23] MEDS: Lisinopril 10 MG Tablet PO SCH ×2 (11:15→21:09)
[2018-06-23] MEDS: Spironolactone 25 MG Tablet PO SCH (11:15)
[2018-06-23] MEDS: Senna/Docusate Sodium 8.6/50 MG Tablet PO SCH ×2 (11:15→21:09)
[2018-06-23] MEDS: Citalopram 20 MG Tablet PO SCH (11:15)
[2018-06-23] MEDS: Acetaminophen 325 MG Tablet PO PRN (21:18)
[2018-06-23] MEDS: Heparin Drip 25,000 UNIT/250 ML BAG IV.CONT PRN (22:40)
[2018-06-24 04:04] LABS: Baso # (Auto) 0.1 th/mm3 (0.0-0.2); Baso % (Auto) 1.2 % (0.0-2.0); Eos # (Auto) 0.2 th/mm3 (0.0-0.4); Eos % (Auto) 4.3 % (0.0-4.0); Hemoglobin 11.4 gm/dL (11.6-15.3); Lymph # (Auto) 1.2 th/mm3 (1.0-4.8); Lymph % (Auto) 26.5 % (9.0-44.0); Mean Corpuscular HGB Conc 33.6 % (32.0-36.0); Mean Corpuscular Hemoglobin 34.6 pg (27.0-34.0); Mean Corpuscular Volume 103.2 fL (80.0-100.0); Mean Platelet Volume 6.8 fL (7.0-11.0); Mono # (Auto) 0.5 th/mm3 (0.0-0.9); Mono % (Auto) 11.9 % (0.0-8.0); Neut # (Auto) 2.5 th/mm3 (1.8-7.7); Neut % (Auto) 56.1 % (16.0-70.0); Platelet Count 193 th/mm3 (150-450); Red Blood Count 3.29 mil/mm3 (4.00-5.30); Red Cell Distribution Width 14.6 % (11.6-17.2); White Blood Count 4.4 th/mm3 (4.0-11.0)
[2018-06-24 04:14] LABS: Activated Partial Thrombo Time 58.9 sec (23.4-31.7); INR 1.9 Ratio; Prothrombin Time 19.5 sec (9.8-11.6)
[2018-06-24 04:27] LABS: Calcium 8.1 mg/dL (8.5-10.1); Carbon Dioxide 28.6 meq/L (21.0-32.0); Magnesium 2.3 mg/dL (1.5-2.5); Potassium 3.8 meq/L (3.5-5.1)
[2018-06-24 04:40] LABS: Phosphorus 2.9 mg/dL (2.5-4.9); Thyroid Stimulating Hormone 4.12 uIU/mL (0.358-3.740)
[2018-06-24] MEDS ORDERED: Sodium Chlor 0.9% Inj 500 ML IV.CONT ONE (05:30)
[2018-06-24] MEDS ORDERED: Chlorhexidine Gluconate 2% 1 Pack (2 Cloths) TOPICAL ONE (05:30)
[2018-06-24] MEDS: Lisinopril 10 MG Tablet PO SCH ×2 (08:41→21:08)
[2018-06-24] MEDS: Amiodarone 200 MG Tablet PO SCH ×2 (08:42→21:08)
[2018-06-24] MEDS: Citalopram 20 MG Tablet PO SCH (08:42)
[2018-06-24] MEDS: Polyethylene Glycol 3350 17 GM Packet PO SCH ×2 (08:42→21:08)
[2018-06-24] MEDS: Spironolactone 25 MG Tablet PO SCH (08:42)
[2018-06-24] MEDS: Senna/Docusate Sodium 8.6/50 MG Tablet PO SCH ×2 (08:43→21:08)
[2018-06-24] MEDS: Pantoprazole Inj 40 MG Vial IV.PUSH SCH (08:43)
--- NOTE | 2018-06-24 13:32 | P.PNIM ---
Subjective Interval history: Transfer service from critical care team this morning. Patient is comfortable when seen today. She is n.p.o. and awaiting celiac stenting. No new complaints. Physical Exam Vital signs: Vital Signs 06/23/18 16:00 06/23/18 20:00 06/24/18 00:00 Temperature 98.5 F 98.3 F 98.6 F Pulse Rate 79 84 80 Respiratory Rate 15 16 16 Blood Pressure 114/64 128/78 114/63 Pulse Oximetry 97 95 95 06/24/18 04:00 06/24/18 07:00 06/24/18 08:00 Temperature 98.5 F 98.7 F Pulse Rate 80 79 80 Respiratory Rate 16 16 Blood Pressure 125/66 150/82 H Pulse Oximetry 93 L 99 06/24/18 09:00 06/24/18 10:00 06/24/18 11:00 Temperature Pulse Rate 79 81 83 Respiratory Rate Blood Pressure Pulse Oximetry 99 06/24/18 12:00 Temperature 98.4 F Pulse Rate 80 Respiratory Rate 15 Blood Pressure 143/85 H Pulse Oximetry 99 Intake & Output 06/23/18 06/24/18 06/24/18 18:59 06:59 18:59 Intake Total 985 / 985 670 / 670 Balance 985 / 985 670 / 670 Weight 68 kg Intake: IV 265 / 265 350 / 350 Heparin/D5W 25,000 U/250 mL 25, 250 / 250 000 unit In 250 ml @ 1,200 UNITS/HR 12 mls/hr IV.CONT TITRATE PRN Rx#:[id number] Maxipime Inj 1,000 MG In NS Inj 100 / 100 100 / 100 100 ML @ 200 mls/hr IV.SIG Q12H KELLEY Rx#:[id number] Glycophos Inj 15 MMOL In NS Inj 165 / 165 150 ML @ 40 mls/hr IV.SIG ONCE ONE Rx#:[id number] Oral 720 / 720 320 / 320 Other: # Voids 5 2 Date of Last Bowel Movement 06/23/18 06/23/18 06/23/18 # Bowel Movements 3 1 Narrative: GENERAL: NAD, A&Ox3 HEAD: Normocephalic. NECK: Supple, trachea midline. No lymphadenopathy. EYES: No scleral icterus. No injection or drainage. CARDIOVASCULAR: Regular rate and rhythm without murmurs, gallops, or rubs. RESPIRATORY: Breath sounds equal bilaterally. No accessory muscle use. GASTROINTESTINAL: Abdomen soft, non-tender, nondistended. MUSCULOSKELETAL: No cyanosis, or edema. SKIN: Warm and dry. NEURO: No focal neurological deficits. 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 Celiac artery stenosis is capable of being stented and his procedures planned for 06/24/2018. Celiac artery stenosis Superior mesenteric artery stenosis Stenting of celiac artery stenosis planned today Patient is ready for procedure No medical contraindications to procedure major depressive disorder NOS Continue citalopram 21 atrial flutter history History of coronary artery disease History of CABG Permanent pacemaker in place Follow clinically Continue amiodarone Continue spironolactone Continue lisinopril Resume warfarin postprocedure Hypertension Continue baseline treatment Follow blood pressures Adjust treatments as needed DVT prophylaxis Heparin
--- NOTE | 2018-06-24 13:37 | P.PNVS ---
Subjective Subjective/Hospital Course: Complain of mild left sided abdominal pain Objective Vital Signs / I&O: Vital Signs 06/23/18 16:00 06/23/18 20:00 06/24/18 00:00 Temperature 98.5 F 98.3 F 98.6 F Pulse Rate 79 84 80 Respiratory Rate 15 16 16 Blood Pressure 114/64 128/78 114/63 Pulse Oximetry 97 95 95 06/24/18 04:00 06/24/18 07:00 06/24/18 08:00 Temperature 98.5 F 98.7 F Pulse Rate 80 79 80 Respiratory Rate 16 16 Blood Pressure 125/66 150/82 H Pulse Oximetry 93 L 99 06/24/18 09:00 06/24/18 10:00 06/24/18 11:00 Temperature Pulse Rate 79 81 83 Respiratory Rate Blood Pressure Pulse Oximetry 99 06/24/18 12:00 06/24/18 13:00 Temperature 98.4 F Pulse Rate 80 82 Respiratory Rate 15 Blood Pressure 143/85 H Pulse Oximetry 99 Intake & Output 06/23/18 06/24/18 06/24/18 18:59 06:59 18:59 Intake Total 985 / 985 670 / 670 Balance 985 / 985 670 / 670 Weight 68 kg Intake: IV 265 / 265 350 / 350 Heparin/D5W 25,000 U/250 mL 25, 250 / 250 000 unit In 250 ml @ 1,200 UNITS/HR 12 mls/hr IV.CONT TITRATE PRN Rx#:[id number] Maxipime Inj 1,000 MG In NS Inj 100 / 100 100 / 100 100 ML @ 200 mls/hr IV.SIG Q12H KELLEY Rx#:[id number] Glycophos Inj 15 MMOL In NS Inj 165 / 165 150 ML @ 40 mls/hr IV.SIG ONCE ONE Rx#:[id number] Oral 720 / 720 320 / 320 Other: # Voids 5 2 Date of Last Bowel Movement 06/23/18 06/23/18 06/23/18 # Bowel Movements 3 1 Physical Exam: Abdomen soft nontender nondistended, no peritoneal signs Laboratory Results - last 24 hr 06/23/18 06/23/18 06/24/18 13:37 20:04 03:02 WBC 4.4 RBC 3.29 L Hgb 11.4 L Hct 34.0 L MCV 103.2 H MCH 34.6 H MCHC 33.6 RDW 14.6 Plt Count 193 MPV 6.8 L Neut % (Auto) 56.1 Lymph % (Auto) 26.5 Benson % (Auto) 11.9 H Eos % (Auto) 4.3 H Baso % (Auto) 1.2 Neut # (Auto) 2.5 Lymph # (Auto) 1.2 Benson # (Auto) 0.5 Eos # (Auto) 0.2 Baso # (Auto) 0.1 WBC Differential . Differential Comment Auto diff final PT INR APTT 50.6 H D Sodium Potassium Chloride Carbon Dioxide Anion Gap BUN Creatinine Estimated GFR POC Glucose 83 Random Glucose Calcium Phosphorus Magnesium TSH 06/24/18 06/24/18 03:02 03:02 WBC RBC Hgb Hct MCV MCH MCHC RDW Plt Count MPV Neut % (Auto) Lymph % (Auto) Benson % (Auto) Eos % (Auto) Baso % (Auto) Neut # (Auto) Lymph # (Auto) Benson # (Auto) Eos # (Auto) Baso # (Auto) WBC Differential Differential Comment PT 19.5 H INR 1.9 APTT 58.9 H Sodium 139 Potassium 3.8 Chloride 104 Carbon Dioxide 28.6 Anion Gap 6 BUN 8 Creatinine 0.73 Estimated GFR 79 L POC Glucose Random Glucose 79 Calcium 8.1 L Phosphorus 2.9 Magnesium 2.3 TSH 4.120 H Impressions Chest X-Ray 06/22/18 17:56 CONCLUSION: Left lower lung partially consolidative infiltrate. Abdomen X-Ray 06/23/18 00:00 CONCLUSION: Nonspecific bowel gas pattern, only minimal stool. Assessment and Plan - Assessment (1) Chronic mesenteric ischemia Code(s): K55.1 - Chronic vascular disorders of intestine Status: Chronic - Plan Patient has typical/atypical symptoms of chronic mesenteric ischemia. The patient INR remains elevated at 1.9. I elected to hold off surgery today and recheck INR in a.m. Patient scheduled at 11 AM tomorrow. Den Rankin MD [facility]
[2018-06-24] MEDS: Acetaminophen 325 MG Tablet PO PRN (21:53)
[2018-06-25 04:50] LABS: Baso # (Auto) 0.1 th/mm3 (0.0-0.2); Baso % (Auto) 1.4 % (0.0-2.0); Eos # (Auto) 0.2 th/mm3 (0.0-0.4); Eos % (Auto) 4.5 % (0.0-4.0); Hematocrit 32.5 % (35.0-46.0); Lymph # (Auto) 1.1 th/mm3 (1.0-4.8); Lymph % (Auto) 23.6 % (9.0-44.0); Mean Corpuscular HGB Conc 33.9 % (32.0-36.0); Mean Corpuscular Hemoglobin 34.8 pg (27.0-34.0); Mean Corpuscular Volume 102.6 fL (80.0-100.0); Mean Platelet Volume 6.2 fL (7.0-11.0); Mono # (Auto) 0.5 th/mm3 (0.0-0.9); Mono % (Auto) 11.3 % (0.0-8.0); Neut # (Auto) 2.7 th/mm3 (1.8-7.7); Neut % (Auto) 59.2 % (16.0-70.0); Platelet Count 190 th/mm3 (150-450); Red Blood Count 3.16 mil/mm3 (4.00-5.30); Red Cell Distribution Width 14.6 % (11.6-17.2); White Blood Count 4.5 th/mm3 (4.0-11.0)
[2018-06-25] MEDS ORDERED: Heparin Drip 25,000 UNIT/250 ML BAG IV.CONT ONE (04:57)
[2018-06-25] MEDS: Heparin Drip 25,000 UNIT/250 ML BAG IV.CONT PRN (05:00)
[2018-06-25 05:13] LABS: Albumin 2.8 g/dL (3.4-5.0); Anion Gap 7 meq/L (5-15); Aspartate Aminotransferase 10 U/L (15-37); Blood Urea Nitrogen 10 mg/dL (7-18); Calcium 8.4 mg/dL (8.5-10.1); Carbon Dioxide 25.1 meq/L (21.0-32.0); Chloride 105 meq/L (98-107); Glomerular Filtration Rate Greater Than 89 mL/min (>89); Glucose,Random 79 mg/dL (74-106); Sodium 137 meq/L (136-145)
[2018-06-25 05:18] LABS: Alanine Aminotransferase 15 U/L (10-53); Alkaline Phosphatase 55 U/L (45-117); Total Protein 5.6 g/dL (6.4-8.2)
[2018-06-25 08:11] LABS: INR 1.7 Ratio; Prothrombin Time 16.8 sec (9.8-11.6)
[2018-06-25] MEDS: Citalopram 20 MG Tablet PO SCH (08:49)
[2018-06-25] MEDS: Lisinopril 10 MG Tablet PO SCH ×2 (08:49→21:03)
[2018-06-25] MEDS: Amiodarone 200 MG Tablet PO SCH ×2 (08:49→21:02)
[2018-06-25] MEDS: Spironolactone 25 MG Tablet PO SCH (08:49)
[2018-06-25] MEDS: Polyethylene Glycol 3350 17 GM Packet PO SCH ×2 (08:52→21:03)
[2018-06-25] MEDS: Senna/Docusate Sodium 8.6/50 MG Tablet PO SCH ×2 (08:52→21:03)
[2018-06-25] MEDS: Pantoprazole Inj 40 MG Vial IV.PUSH SCH (08:53)
[2018-06-25 09:39] VITALS: RESP 18
--- NOTE | 2018-06-25 11:39 | P.PNIM ---
Subjective Interval history: Vascular procedure cannot be performed yesterday because INR is 1.9. INR is currently 1.7 today. Patient has no complaints. Physical Exam Vital signs: Vital Signs 06/24/18 12:00 06/24/18 13:00 06/24/18 14:00 Temperature 98.4 F Pulse Rate 80 82 80 Respiratory Rate 15 Blood Pressure 143/85 H Pulse Oximetry 99 06/24/18 15:00 06/24/18 16:00 06/24/18 17:00 Temperature 98.4 F Pulse Rate 86 80 82 Respiratory Rate 18 Blood Pressure 159/74 H Pulse Oximetry 99 99 06/24/18 18:00 06/24/18 19:00 06/24/18 19:41 Temperature 97.7 F Pulse Rate 82 82 80 Respiratory Rate 18 Blood Pressure 157/73 H Pulse Oximetry 97 100 06/24/18 20:00 06/24/18 21:00 06/24/18 22:00 Temperature Pulse Rate 79 46 L 82 Respiratory Rate Blood Pressure Pulse Oximetry 06/24/18 23:00 06/25/18 00:00 06/25/18 01:00 Temperature 97.9 F Pulse Rate 79 80 70 Respiratory Rate 18 Blood Pressure 124/59 L Pulse Oximetry 96 96 06/25/18 02:00 06/25/18 03:00 06/25/18 04:00 Temperature 98.0 F Pulse Rate 81 81 80 Respiratory Rate 17 Blood Pressure 130/67 Pulse Oximetry 96 98 06/25/18 05:00 06/25/18 05:07 06/25/18 07:00 Temperature Pulse Rate 80 81 80 Respiratory Rate Blood Pressure Pulse Oximetry 98 06/25/18 08:00 06/25/18 09:00 06/25/18 10:00 Temperature 98.2 F Pulse Rate 78 84 76 Respiratory Rate 18 Blood Pressure 139/75 Pulse Oximetry 99 06/25/18 11:00 Temperature 98.4 F Pulse Rate 80 Respiratory Rate 18 Blood Pressure 128/68 Pulse Oximetry 98 Intake & Output 06/24/18 06/25/18 06/25/18 18:59 06:59 18:59 Intake Total 580 / 580 470 / 470 Balance 580 / 580 470 / 470 Weight 70 kg Intake: IV 100 / 100 350 / 350 Maxipime Inj 1,000 MG In NS Inj 100 / 100 100 / 100 100 ML @ 200 mls/hr IV.SIG Q12H KELLEY Rx#:[id number] Oral 480 / 480 120 / 120 Other: # Voids 2 3 Date of Last Bowel Movement 06/23/18 Narrative: GENERAL: NAD, A&Ox3 HEAD: Normocephalic. NECK: Supple, trachea midline. No lymphadenopathy. EYES: No scleral icterus. No injection or drainage. CARDIOVASCULAR: Regular rate and rhythm without murmurs, gallops, or rubs. RESPIRATORY: Breath sounds equal bilaterally. No accessory muscle use. GASTROINTESTINAL: Abdomen soft, non-tender, nondistended. MUSCULOSKELETAL: No cyanosis, or edema. SKIN: Warm and dry. NEURO: No focal neurological deficits. 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 Celiac artery stenosis is capable of being stented and his procedures planned, after INR is at a safe level. Safe level to be determined by vascular surgeon. INR has a downward trend from 1.9 yesterday to 1.7 today. Continue to follow INR. Celiac artery stenosis Superior mesenteric artery stenosis Stenting of celiac artery stenosis planned today Patient is ready for procedure No medical contraindications to procedure major depressive disorder NOS Continue citalopram 21 atrial flutter history History of coronary artery disease History of CABG Permanent pacemaker in place Follow clinically Continue amiodarone Continue spironolactone Continue lisinopril Resume warfarin postprocedure Hypertension Continue baseline treatment Follow blood pressures Adjust treatments as needed DVT prophylaxis Heparin
[2018-06-25] MEDS ORDERED: Heparin/NS PF Inj 1,000 ML ONE (12:06)
[2018-06-25] MEDS ORDERED: fentaNYL Citrate Inj 100 MCG/2 ML Ampul ONE (12:06)
[2018-06-25] MEDS ORDERED: Heparin 10,000 UNITS/10 ML Vial (for IV use) ONE (12:06)
[2018-06-25] MEDS ORDERED: Iohexol 350 MG/ML 100 ML Vial (for Cath Lab) IVCONTRAST ONE (12:15)
--- NOTE | 2018-06-25 14:33 | CATHPROC ---
[facility] HIS Report Study Information Study Number Admission Scheduled Start Study Start [id number] Jun 22 2018 5:29PM 06/25/2018 Jun 25 2018 8:32AM [place] [facility] Cath Endovascular Study Admit Source Facility Department Transfer in from another acute care [facility] - Supervisor Remelt Physician and Clinical Staff Initial Den Walter Wood Room SupervisorAllison Sinha,RN Recorder Dinorah Rogers,RT(R) (BS) Scrub James MurilloRT(R) Procedures Performed Procedure Location (Site) Vessel Name Abdominal Angiogram Celiac Angiogram Celiac Artery IVUS Fem Art (right) Femoral Art Periph stent 1 Antecubital Vein Periph stent Celiac Angiogram Celiac Artery PTCA Celiac Angiogram Celiac Artery Radiation Dosage Wire insertion Fem Art (right) Femoral Art Equipment Time Assistant Track Coach Description Size Mfg Part Number Used/Scraped PERCLOSE, PRO GLIDE CLOSER 14:12 BUTT CRITICAL CARE FR 6 [id number] *[id number] Used DEVICE [id number] 12:37 BUTT [employer]ITICAL C[employer] WIRE, SPARTACORE 5*300CM 300CM Used *[id number] 13:06 BUTT CRITICAL CARE WIRE, SPARTACORE 5*300CM 300CM Used *[id number] 12:06 BUTT CRITICAL CARE WIRE, SUPRACORE 190CM 190cm Used *[id number] 12:06 ANGIO-DYNAMICS OMNI FLUSH 65CM CATHETER FR 4 Used *[id number] INTRODUCER SET, 12:06 [employer] FR 5 [id number] *[id number] Used MICROPUNCTURE STIFF [id number] *[id number] BALLOON, EVERCROSS 12 X 20 [id number] 14:10 [employer] 12 X 20 Used 135CM *[id number] 13:43 [employer] STENT, VISI-PRO 10 X 17 135CM 10 X 17 Used *[id number] 13:56 [employer] STENT, VISI-PRO 10 X 17 80CM 10X17 Used *[id number] 12:06 [employer] PACK, CCL CUSTOM * Used *[id number] 14:11 [employer] MEDICAL 30 DELVIN INDEFLATOR Used *[id number] 5426-33 14:03 [employer] WIRE, CUEVAS 260CM .035 260CM Used *[id number] 8471-33 12:50 [employer] MEDICAL WIRE, CUEVAS 260CM .035 260CM Used *[id number] PROBE COVER, STERILE [id number] 12:06 [employer] MEDICAL * Used ULTRASOUND W/ GEL *[id number] 12:06 NAMIC MANIFOLD, 4 PORT * Used *[id number] 12:06 NYCOMED OMNIPAQUE, 300 MG, 150ML 150ML [id number] Used 14:02 NYCOMED OMNIPAQUE, 300 MG, 150ML 150ML [id number] Used 12:06 NYCOMED OMNIPAQUE, 300 MG, 50ML 50ML [id number] Used 13:10 NYCOMED OMNIPAQUE, 300 MG, 50ML 50ML [id number] Used 12:32 NYCOMED OMNIPAQUE, 300 MG, 50ML 50ML [id number] Used 12:32 NYCOMED OMNIPAQUE, 300 MG, 50ML 50ML [id number] Used [id number] 12:06 TERUMO MEDICAL SHEATH, FR5 TERUMO (10CM) FR 5 Used *[id number] 12:38 TERUMO MEDICAL SHEATH, FR6 TERUMO (10CM) FR 6 Used *[id number] 12:50 TERUMO MEDICAL/GABRIEL CATHETER, FR5 ANGLED 100CM FR 5 [id number] *[id number] Used WIRE, ANGLED GLIDE .035 [id number] 12:06 TERUMO MEDICAL/GABRIEL 260CM Used 260CM *[id number] CATHETER, [employer] [place] [id number] 13:21 VOLCAN[employer] .014 Used IMAGING *[id number] Equipment Model, Serial, Lot Number and Expiration Data Description Model Number Serial Number Lot Number Expiration Date PERCLOSE, PRO GLIDE CLOSER [id number] 01-28-2020 DEVICE STENT, VISI-PRO 10 X 17 135CM [id number] 09-04-2019 STENT, VISI-PRO 10 X 17 80CM [id number] 12-14-2019 History: Allergies Allergy Reaction levofloxacin Anaphylaxis gatifloxacin Rash, Generalized cefuroxime Generalized Rash doxycycline Generalized Rash cephalexin Generalized Rash sulfadiazine Generalized Rash Labs INR (PTT:PT) 0.90-1.10 1.7 Medication Medication Total Dose (Bolus/Oral) Medication Total Dosage/Unit FENTANYL 100 mcg HEPARIN 7000 units PLAVIX 300 mg VERSED 2 mg ZOFRAN 4 mg Medications (Bolus/Oral) Medication Time Given Dosage/Unit Administered By Reason VERSED 06/25/2018 12:15:54 PM 2 mg Allison Bernabe 2 mg VERSED given in lab by Allison Bernabe RN via Peripheral IV. FENTANYL 06/25/2018 12:16:19 PM 50 mcg Allison Bernabe 50 mcg FENTANYL given in lab by Allison Bernabe RN via Peripheral IV. HEPARIN 06/25/2018 12:37:22 PM 5000 units Allison Bernabe 5000 units HEPARIN given in lab by Allison Bernabe RN via Peripheral IV. HEPARIN 06/25/2018 1:35:26 PM 2000 units Allison Bernabe 2000 units HEPARIN given in lab by Allison Bernabe RN via Peripheral IV. FENTANYL 06/25/2018 2:05:19 PM 50 mcg Allison Bernabe 50 mcg FENTANYL given in lab by Allison Bernabe RN via Peripheral IV. ZOFRAN 06/25/2018 2:07:02 PM 4 mg Allison Bernabe 4 mg ZOFRAN given in lab by Allison Bernabe RN via Central IV. PLAVIX 06/25/2018 2:30:18 PM 300 mg Allison Bernabe 300 mg PLAVIX given in lab by Allison Bernabe RN via Oral. Medication (Drip) Medication Time Given Dosage/Unit Concentration/Unit Diluent (ml) Solution IV Solutions 06/25/2018 11:50:49 AM 0 mL (IV) 1000 NaCl .9 IV Solutions given in lab by Allison Bernabe RN via Peripheral IV. Pump/Drip Flow = 30 ml/hr using N aCl .9. Initial Case Assessment Cardiovascular HR NIBP 80 158/76 Edema Present Skin color Skin Moderate Normal Warm Dry Circulatory - Lower Extremities Color Lower Right Color Lower Left Normal Normal Neurological State Oriented to time-place- Alert Moves all extremities person Respiration - General Respiration Rate SpO2 (%) (B/min) 16 100 Chronological Log Time Study Chronological Log 11:50:27 Patient arrived via Bed. 11:50:29 Patient Name, D.O.B, / Armband Verified By R.N. 11:50:32 Consent signed by the physician and the patient and verified by the Supervisor Remelt staff. 11:50:33 Pre-op and post- op instructions given; patient acknowledges understanding of instructions. 11:50:40 Presedation assessment performed by Supervisor Remelt RN. 11:50:43 Patient has been NPO for More than 6Hrs. 11:50:44 Skin Breakdown- bruising in both groins from previous procedures. 11:50:45 Patient Warmer Placed on the Table. 11:50:47 Zoran Prominences Protected 11:50:48 A # 20 IV was noted in the Antecubital (left). Grade = 0 11:50:49 IV Solutions given in lab by Allison Bernabe, RN via Peripheral IV. Pump/Drip Flow = 30 ml/ hr using NaCl .9. 11:50:49 History and physical on the chart or being dictated. Assessment: Initial Case, HR=80 BPM, DQGP=105/76 mmhg, Edema=Mod, Color=Normal, Skin = Warm, Dr y Lower Right Extremities: Color=Normal 11:50:50 Lower Left Extremities: Color=Normal Neurological: State=Alert, Ox3, DE LU[place] Respiration: Resp=16 B/min, QzN6=618 % 11:50:51 Table restraints applied according to hospital policy Vitals capture started with the following parameters, Patient=Adult, Interval=5 min, Initial Pr aurliu=107 mmHg, 12:01:10 Deflation Rate=5 mmHg, Cuff placed on Right Arm 12:03:11 HR=80 bpm, MRFN=815/76 mmhg, KgP0=556.0 %, Resp=19 B/min, Dedrick=10, Aguilar=2 12:06:33 Bilateral groins prepped with 2% chlorhexidine, and draped after a 3 minute waiting time. 12:06:48 HR=79 bpm, HDHL=706/83 mmhg, YaX0=379.0 %, Resp=22 B/min, Dedrick=10, Aguilar=2 12:11:49 HR=80 bpm, BVKW=736/83 mmhg, SdO8=986.0 %, Resp=19 B/min, Dedrick=10, Aguilar=2 12:15:54 2 mg VERSED given in lab by Allison Bernabe, RN via Peripheral IV. Time Out. Correct patient, correct procedure, correct physician, labs, allergies, and equipment verified with labor law professor 12:16:04 team present. Fire risk assesment completed (see hard stop sheet for coding). Time Out Conc urred by MD and individual staff in procedure. 12:16:19 50 mcg FENTANYL given in lab by Allison Bernabe RN via Peripheral IV. 12:16:31 Case Start 12:16:50 HR=83 bpm, DUQM=537/76 mmhg, IqF8=935.0 %, Resp=17 B/min, Dedrick=10, Aguilar=2 12:18:26 Access site was Right Femoral Artery using ultrasound A INTRODUCER SET, MICROPUNCTURE STIFF FR 5 was advanced into the Fem Art (right) using the Perc utaneous 12:18:32 technique. A SHEATH, FR5 TERUMO (10CM) FR 5 was exchanged in the Fem Art (right). This was necessary in or renetta to 12:18:51 accomodate a larger catheter. A PIGTAIL ANG. INFINITI CATHETER FR 5 was advanced over a wire. OMNIPAQUE, 300 MG, 150ML 150ML was used 12:19:20 for injections. 12:20:48 Wire removed 12:21:49 HR=80 bpm, OQRS=032/81 mmhg, SpO2=98.0 %, Resp=12 B/min, Dedrick=10, Aguilar=2 12:21:59 Through a PIGTAIL ANG. INFINITI CATHETER FR 5, The Abdominal Aorta was injected with 10 cc' s of contrast. 12:23:03 Through a PIGTAIL ANG. INFINITI CATHETER FR 5, The Abdominal Aorta was injected with 10 cc' s of contrast. 12:26:51 HR=79 bpm, RAKE=613/78 mmhg, SpO2=96.0 %, Resp=12 B/min, Dedrick=10, Aguilar=2 12:27:22 A WIRE, SUPRACORE 190CM 190cm was inserted via Fem Art (right). 12:27:39 Catheter was removed 12:31:52 HR=74 bpm, NXEI=805/75 mmhg, SpO2=95.0 %, Resp=20 B/min, Dedrick=10, Aguilar=2 12:35:43 A SOS Omni catheter was advanced over a wire. OMNIPAQUE, 300 MG, 150ML 150ML was used for i njections. 12:36:51 HR=80 bpm, EBJM=431/79 mmhg, Resp=13 B/min, Dedrick=10, Aguilar=2 12:37:22 5000 units HEPARIN given in lab by Alliosn Bernabe, KERA via Peripheral IV. 12:40:34 Wire removed 12:40:49 A WIRE, SPARTACORE 5*300CM 300CM was inserted via Fem Art (right). 12:41:54 HR=80 bpm, UXIW=934/72 mmhg, SpO2=91.0 %, Resp=11 B/min, Dedrick=10, Aguilar=2 12:44:24 An ivus was advanced through the lesion. Images saved onto IVUS hard drive 12:46:51 HR=80 bpm, LJUP=268/75 mmhg, SpO2=94.0 %, Resp=12 B/min, Dedrick=10, Aguilar=2 12:51:37 Wire removed 12:51:50 HR=80 bpm, CCEM=070/77 mmhg, SpO2=94.0 %, Resp=12 B/min, Dedrick=10, Aguilar=2 12:52:30 Catheter was removed A Flexor Check-Maxime 7F sheath was exchanged in the Fem Art (right). This was necessary in order to accomodate a 12:53:50 larger catheter. 12:54:40 A WIRE, SUPRACORE 190CM 190cm was inserted via Fem Art (right). 12:56:49 HR=82 bpm, FVJY=608/81 mmhg, SpO2=94.0 %, Resp=14 B/min, Dedrick=10, Aguilar=2 12:57:00 A Cobra 1 glide catheter was advanced over a wire. OMNIPAQUE, 300 MG, 50ML 50ML was used fo r injections. 13:00:50 Wire removed 13:01:14 A WIRE, CUEVAS 260CM .035 260CM was inserted via Fem Art (right). 13:01:29 Wire removed 13:01:30 A WIRE, ANGLED GLIDE .035 260CM 260CM was inserted via Fem Art (right). 13:01:52 HR=80 bpm, SCPU=584/77 mmhg, SpO2=95.0 %, Resp=15 B/min, Dedrick=10, Aguilar=2 13:04:14 Wire removed 13:06:53 HR=80 bpm, GGLB=725/81 mmhg, SpO2=95.0 %, Resp=20 B/min, Dedrick=10, Aguilar=2 13:11:54 HR=80 bpm, RWGA=476/76 mmhg, SpO2=95.0 %, Resp=15 B/min, Dedrick=10, Aguilar=2 13:16:55 HR=80 bpm, OXKY=018/75 mmhg, SpO2=92.0 %, Resp=15 B/min, Dedrick=10, Aguilar=2 13:21:56 HR=83 bpm, SHVJ=634/78 mmhg, SpO2=92.0 %, Resp=14 B/min, Dedrick=10, Aguilar=2 13:26:06 Pressure channel 1 zero failed. 13:26:24 Pressure channel 1 zeroed. 13:26:55 HR=79 bpm, WIVV=733/79 mmhg, SpO2=96.0 %, Resp=14 B/min, Dedrick=10, Aguilar=2 A CATHETER, FR5 ANGLED 100CM FR 5 was advanced over a wire. OMNIPAQUE, 300 MG, 50ML 50ML was us ed for 13:26:58 injections. Recorded Pressure: Ao, HR=80, Condition=Condition 1 13:29:40 (Aorta) Ao 85/53/68 Recorded Pressure: LV, Ao, HR=80, Condition=Condition 1 13:30:02 (Left Ventricle) LV 84/53/57, (Aorta) Ao 169/70/111 13:30:46 A WIRE, SPARTACORE 5*300CM 300CM was inserted via Fem Art (right). 13:31:54 HR=80 bpm, STYP=981/79 mmhg, SpO2=94.0 %, Resp=13 B/min, Dedrick=10, Aguilar=2 13:34:32 Wire removed 13:35:05 A WIRE, ANGLED GLIDE .035 260CM 260CM was inserted via Fem Art (right). 13:35:11 A Cobra catheter was advanced over a wire. contrast was used for injections. 13:35:26 2000 units HEPARIN given in lab by Allison Bernabe, KERA via Peripheral IV. 13:36:57 HR=79 bpm, FIYZ=069/76 mmhg, SpO2=93.0 %, Resp=14 B/min, Dedrick=10, Aguilar=2 13:38:56 Catheter was removed 13:39:21 A WIRE, CUEVAS 260CM .035 260CM was inserted via Fem Art (right). 13:41:56 HR=80 bpm, ASYM=953/82 mmhg, SpO2=99.0 %, Resp=12 B/min, Dedrick=10, Aguilar=2 13:43:48 A STENT, VISI-PRO 10 X 17 135CM 10 X 17 was advanced through a catheter over a wire. 13:46:07 A STENT, VISI-PRO 10 X 17 135CM 10 X 17 was deployed at 12 atmospheres for 17 seconds in th e celiac artery. 13:46:55 HR=79 bpm, FYUJ=771/84 mmhg, RjO3=384.0 %, Resp=14 B/min 13:47:43 Delivery device removed 13:50:59 Catheter was removed 13:51:03 Wire removed 13:51:56 HR=79 bpm, YFZL=757/88 mmhg, SpO2=95.0 %, Resp=13 B/min, Dedrick=10, Aguilar=2 13:52:06 A WIRE, SPARTACORE 5*300CM 300CM was inserted via Fem Art (right). An CATHETER, [employer] .014 was advanced through the lesion. Images saved o nto IVUS hard 13:52:39 drive 13:56:38 Wire removed 13:56:58 HR=79 bpm, KOYU=470/86 mmhg, SpO2=94.0 %, Resp=13 B/min, Dedrick=10, Aguilar=2 13:57:21 A cobra catheter was advanced over a wire. contrast was used for injections. 13:58:39 Wire removed 13:58:47 A WIRE, CUEVAS 260CM .035 260CM was inserted via Fem Art (right). 13:59:52 Catheter was removed 14:00:14 A STENT, VISI-PRO 10 X 17 80CM 10X17 was advanced through a catheter over a WIRE, CUEVAS 260 CM .035 260CM. 14:01:12 A implantable was deployed at ~DELVIN~ atmospheres for ~SECONDS~ seconds in the Celiac 14:02:38 HR=80 bpm, OFPN=938/87 mmhg, SpO2=94.0 %, Resp=17 B/min, Dedrick=10, Aguilar=2 14:03:13 Re-inflated the stent balloon in the Celiac to ~DELVIN~ DELVIN for ~SECONDS~ seconds. 14:04:05 A WIRE, CUEVAS 260CM .035 260CM was inserted via Fem Art (right). 14:05:03 Delivery device removed 14:05:19 50 mcg FENTANYL given in lab by Allison Bernabe, RN via Peripheral IV. 14:07:02 4 mg ZOFRAN given in lab by Allison Bernabe, RN via Central IV. 14:07:39 HR=80 bpm, UJNI=133/86 mmhg, SpO2=99.0 %, Resp=15 B/min, Dedrick=10, Aguilar=2 14:09:46 A BALLOON, EVERCROSS 12 X 20 135CM 12 X 20 was inserted over wire via the Fem Art (right). A BALLOON, EVERCROSS 12 X 20 135CM 12 X 20 over a wire in the Celiac was inflated using a 30 AT M INDEFLATOR at 14:10:50 7 delvin for 15 sec. 14:11:48 Balloon Removed 14:11:53 Wire removed 14:12:03 HR=80 bpm, VWQH=400/78 mmhg, SpO2=83.0 %, Resp=10 B/min, Dedrick=10, Aguilar=2 14:14:19 PERCLOSE, PRO GLIDE CLOSER DEVICE FR 6 placement in the Fem Art (right) 14:15:03 Case End (Physician broke scrub) 14:15:07 Catheter(s) removed without difficulty 14:15:36 mGy is equal to or greater than 2000 mGy due to: Body Habitus 14:15:46 No case complications noted. 14:15:49 Bedside Report will be given. 14:15:50 Implantable Device card placed in patient's chart. 14:17:00 HR=80 bpm, ZMZN=460/75 mmhg, SpO2=89.0 %, Resp=13 B/min, Dedrick=10, Aguilar=2 14:21:59 HR=80 bpm, TUJA=746/71 mmhg, SpO2=89.0 %, Resp=15 B/min, Dedrick=10, Aguilar=2 14:25:42 Sterile dressing applied to site 14:26:58 HR=80 bpm, JYBL=052/73 mmhg, SpO2=99.0 %, Resp=12 B/min, Dedrick=10, Aguilar=2 14:30:18 300 mg PLAVIX given in lab by Allison Bernabe, RN via Oral. 14:31:59 CVWB=128/78 mmhg, Dedrick=10, Aguilar=2 14:32:08 Vitals capture stopped. 14:33:52 [facility] - Contrast Media Used In Study Contrast Total Opened (mL) Total Used (mL) Total Wasted (mL) Omnipaque 300 180 180 0 End Study - Radiation Exposure Fluoro Time Fluoro Dose (mGy) Cine Dose (uGym2) (minutes) 31.5 5178 5534 End Study - Sheaths Sheaths Pulled By Sheath Hold Time (min) Den Rankin End Study - Patient Disposition Complications Transferred To Interventional Outcome No Telemetry Bed successful
--- NOTE | 2018-06-25 14:33 | P.OP ---
Preoperative Diagnosis: Chronic mesenteric ischemia Postoperative Diagnosis: Chronic mesenteric ischemia Date of procedure: 06/25/18 Procedure: 1. Ultrasound-guided access right common femoral artery 2. Abdominal aortogram 3. Selective celiac artery angiogram 5. IVUS of the celiac artery 6. STEAM TABLE ATTENDANT and stenting of the celiac artery 7. Perclose of the right common femoral artery 8. Radiological supervision and interpretation 9. Conscious sedation Implants: Balloon expandable stent measuring 10 mm x 17 mm x 2 Anesthesia: local (Conscious sedation) Surgeon: Den Rankin MD Estimated blood loss (mL): 5 Operation and Findings: Findings 1. 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 This was evident on intravascular ultrasound with a pressure gradient of approximately 100 mmHg across the lesion. It was extremely difficult to profile the celiac artery to identify this ostial lesion angiographically. 2. I treated this lesion initially with 10 mm x 17 mm balloon expandable stent. I attempted to deploy the stent with minimal extension into the abdominal aorta but the stent migrated distally during deployment. A second 10 mm x 17 mm balloon expandable stent was deployed with approximately 5 mm extension in the abdominal aorta to treat this ostial lesion. There was no flow -limiting dissection or residual stenosis at the end of the procedure. Operation in details The patient was taken to the operating room and laid supine on the OR table. After adequate sedation the patient was prepped and draped in the standard sterile fashion. Timeout was called with all members and you are in agreement. 1% lidocaine was injected in the right groin. Using ultrasound and axis, I placed a 5 Spanish sheath in the right common femoral artery. An abdominal aortogram and selective celiac artery angiogram were performed. A 7 Spanish Twin sheath was placed in the abdominal aorta. I was able to cross this lesion with an 014 wire and celiac artery intravascular ultrasound followed by pressure gradient was performed. 035 Crawford wire was placed in the splenic artery. The lesion was treated using the first stent which migrated distally. A second stent was deployed and flared using a 12 mm balloon. Completion angiogram was performed. At this point, the wire, the catheter, and the sheath were removed and hemostasis achieved by applying a Perclose device to the right common femoral artery. The patient tolerated the procedure well and was taken to recovery unit in stable condition.
[2018-06-26 05:18] LABS: Baso % (Auto) 0.6 % (0.0-2.0); Eos # (Auto) 0.1 th/mm3 (0.0-0.4); Eos % (Auto) 2.5 % (0.0-4.0); Hematocrit 32.4 % (35.0-46.0); Hemoglobin 11.2 gm/dL (11.6-15.3); Lymph # (Auto) 0.8 th/mm3 (1.0-4.8); Lymph % (Auto) 14.4 % (9.0-44.0); Mean Corpuscular HGB Conc 34.5 % (32.0-36.0); Mean Corpuscular Hemoglobin 35.1 pg (27.0-34.0); Mean Corpuscular Volume 101.9 fL (80.0-100.0); Mean Platelet Volume 6.3 fL (7.0-11.0); Mono # (Auto) 0.6 th/mm3 (0.0-0.9); Mono % (Auto) 11.4 % (0.0-8.0); Neut # (Auto) 3.8 th/mm3 (1.8-7.7); Neut % (Auto) 71.1 % (16.0-70.0); Platelet Count 206 th/mm3 (150-450); Red Blood Count 3.18 mil/mm3 (4.00-5.30); Red Cell Distribution Width 14.2 % (11.6-17.2); White Blood Count 5.4 th/mm3 (4.0-11.0)
[2018-06-26 05:39] LABS: INR 1.4 Ratio; Prothrombin Time 14.2 sec (9.8-11.6)
[2018-06-26 05:46] LABS: Alanine Aminotransferase 18 U/L (10-53); Albumin 2.9 g/dL (3.4-5.0); Anion Gap 9 meq/L (5-15); Aspartate Aminotransferase 10 U/L (15-37); Blood Urea Nitrogen 8 mg/dL (7-18); Calcium 7.8 mg/dL (8.5-10.1); Carbon Dioxide 23.8 meq/L (21.0-32.0); Chloride 104 meq/L (98-107); Glomerular Filtration Rate Greater Than 89 mL/min (>89); Glucose,Random 75 mg/dL (74-106); Sodium 137 meq/L (136-145)
[2018-06-26 05:48] LABS: Alkaline Phosphatase 61 U/L (45-117); Total Protein 5.8 g/dL (6.4-8.2)
--- NOTE | 2018-06-26 08:14 | P.PNVS ---
Subjective Subjective/Hospital Course: doing well this am denies abd pain Objective Vital Signs / I&O: Vital Signs 06/25/18 09:00 06/25/18 10:00 06/25/18 11:00 Temperature 98.4 F Pulse Rate 84 76 80 Respiratory Rate 18 Blood Pressure 128/68 Pulse Oximetry 98 06/25/18 13:31 06/25/18 15:00 06/25/18 16:00 Temperature 98.6 F Pulse Rate 80 80 Respiratory Rate 18 Blood Pressure 124/62 Pulse Oximetry 98 97 06/25/18 17:00 06/25/18 18:00 06/25/18 19:00 Temperature 98.3 F Pulse Rate 84 84 80 Respiratory Rate 18 Blood Pressure 125/64 159/74 H Pulse Oximetry 97 06/25/18 20:00 06/25/18 21:00 06/25/18 22:00 Temperature Pulse Rate 81 88 79 Respiratory Rate Blood Pressure Pulse Oximetry 97 06/25/18 23:00 06/26/18 00:00 06/26/18 00:29 Temperature 98.2 F Pulse Rate 79 80 Respiratory Rate 18 18 Blood Pressure 130/69 Pulse Oximetry 98 06/26/18 01:00 06/26/18 02:00 06/26/18 03:00 Temperature 98.6 F Pulse Rate 79 79 85 Respiratory Rate 18 Blood Pressure 125/65 Pulse Oximetry 98 06/26/18 04:00 06/26/18 05:26 Temperature Pulse Rate 85 87 Respiratory Rate Blood Pressure Pulse Oximetry Intake & Output 06/25/18 06/26/18 06/26/18 18:59 06:59 18:59 Intake Total 800 / 800 340 / 340 Output Total 400 / 400 Balance 400 / 400 340 / 340 Weight 69.8 kg Intake: IV 100 / 100 100 / 100 Maxipime Inj 1,000 MG In NS Inj 100 / 100 100 / 100 100 ML @ 200 mls/hr IV.SIG Q12H [facility] Rx#:[id number] Oral 700 / 700 240 / 240 Output: Urine 400 / 400 Other: # Voids 3 # Bowel Movements 0 Physical Exam: abdomen soft NT ND right groin with extensive echeosis(present since EP procedure last week with no change) no palpated hematoma Laboratory Results - last 24 hr 06/25/18 06/26/18 06/26/18 04:12 05:05 05:05 WBC 5.4 RBC 3.18 L Hgb 11.2 L Hct 32.4 L MCV 101.9 H MCH 35.1 H MCHC 34.5 RDW 14.2 Plt Count 206 MPV 6.3 L Neut % (Auto) 71.1 H Lymph % (Auto) 14.4 [place] % (Auto) 11.4 H Eos % (Auto) 2.5 Baso % (Auto) 0.6 Neut # (Auto) 3.8 Lymph # (Auto) 0.8 L [place] # (Auto) 0.6 Eos # (Auto) 0.1 Baso # (Auto) 0.0 WBC Differential . Differential Comment Auto diff final PT 16.8 H 14.2 H INR 1.7 1.4 Sodium Potassium Chloride Carbon Dioxide Anion Gap BUN Creatinine Estimated GFR Random Glucose Calcium Total Bilirubin AST ALT Alkaline Phosphatase Total Protein Albumin 06/26/18 05:05 WBC RBC Hgb Hct MCV MCH MCHC RDW Plt Count MPV Neut % (Auto) Lymph % (Auto) [place] % (Auto) Eos % (Auto) Baso % (Auto) Neut # (Auto) Lymph # (Auto) [place] # (Auto) Eos # (Auto) Baso # (Auto) WBC Differential Differential Comment PT INR Sodium 137 Potassium 4.0 Chloride 104 Carbon Dioxide 23.8 Anion Gap 9 BUN 8 Creatinine 0.61 Estimated GFR Greater than 89 Random Glucose 75 Calcium 7.8 L Total Bilirubin 0.9 AST 10 L ALT 18 Alkaline Phosphatase 61 Total Protein 5.8 L Albumin 2.9 L Assessment and Plan - Assessment (1) Chronic mesenteric ischemia Code(s): K55.1 - Chronic vascular disorders of intestine Status: Chronic - Plan Patient has typical/atypical symptoms of chronic mesenteric ischemia. S/P CA RADIO OPERATOR/Stent POD #1 Diet as patito Stable for dc from vascular surgery standpoint on Plavix for 6 weeks and Coumadin office will call patient with FU appointment Den Rank[facility]
[2018-06-26] MEDS: Chlorhexidine Gluconate 2% 1 Pack (2 Cloths) TOPICAL SCH (08:51)
[2018-06-26] MEDS: Citalopram 20 MG Tablet PO SCH (08:55)
[2018-06-26] MEDS: Pantoprazole Inj 40 MG Vial IV.PUSH SCH (08:56)
[2018-06-26] MEDS: Senna/Docusate Sodium 8.6/50 MG Tablet PO SCH (08:56)
[2018-06-26] MEDS: Amiodarone 200 MG Tablet PO SCH (08:56)
[2018-06-26] MEDS: Lisinopril 10 MG Tablet PO SCH (08:56)
[2018-06-26] MEDS: Polyethylene Glycol 3350 17 GM Packet PO SCH (09:01)
[2018-06-26] MEDS: Spironolactone 25 MG Tablet PO SCH (09:01)
--- NOTE | 2018-06-26 10:04 | P.DCO ---
Diagnosis (1) Chronic mesenteric ischemia: Status: Chronic Physical Therapy Order: Evaluate and treat, Improve ambulation and Strength and gait training Home Health Nursing Order: Medical education and Nursing assessment with vital signs Case Management Consult Case Management Consult-Home Health: Yes I have seen patient Dinorah Meyer on 06/26/18. My clinical findings support the need for the requested home health care services because: Limited mobility due to disease progression and Deconditioned with increased weakness I certify that my clinical findings support that this patient is homebound because: Unsteady gait/balance, Unsafe to leave home unassisted and Unable to use public transportation
--- NOTE | 2018-06-26 10:08 | P.DS ---
DS: Providers Date of admission: 06/22/18 17:29 Primary care physician: UNKNOWN Consults: 06/22/18 18:01 Consult to Vascular Surgery Routine Consulting Provider: Magdy Bustamante Reason for Consultation: Discussed with Dr. Bustamante. Transfer from [facility] withchronic mesenteric ischemia and celiac artery stenosis Spoke with:: add to list/Dr already aware Date Notified:: 06/22/18 Time Notified:: 18:06 Ordering Provider: DOMINIQUE 06/23/18 16:51 Consult to Hospitalist Routine Consulting Provider: Moises Parikh Reason for Consultation: [place] of care in a.m. 06/24. Patient with celiac artery stenosis. Likely will require stent by IR tomorrow. Dr. Rankin/Robby following. Otherwise stable. Recent pacemaker placement at [facility]. Notified:: Service Spoke with:: LISANDRO Date Notified:: 06/23/18 Time Notified:: 17:08 Ordering Provider: DOMINIQUE Brief History from admission: This is a 73-year-old female. Date of admission 06/22/2018. Past medical history includes recurrent complicated urinary tract infection most recently E. coli, syncope frequent falls, coronary artery disease status post CABG, advanced age, congestive heart failure diastolic ejection fraction 55%, gastroesophageal reflux disease, depression/ anxiety, essential hypertension, atrial fibrillation/2-1 flutter status post ablation with micro pacemaker placement/[employer], chronic anticoagulation, diverticulitis by history, internal and external hemorrhoids, bullous pemphigoid , osteoarthritis, hypothyroidism. She has known chronic mesenteric ischemia with SMA stenosis with collaterals present. Patient originally presented to [facility]. [place] 06/15 after syncopal event while playing cards at her [facility] senior care. She fell backwards with a positive loss of conscious. CT of the brain revealed left occipital scalp hematoma. No acute intracranial findings. During her evaluation patient was evaluated by neurology /Dr. Garcia. EEG showed no epileptic activity. Orthostatics were positive. Ultrasound of the carotids revealed no significant stenosis negative stroke workup. Patient was evaluated by cardiology. 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 She divided by cardiology and EP cardiology. She had an AV node ablation with micro per minute pacemaker 06/20. She is currently on warfarin with a goal INR of 2.5-3.5. She was started on amiodarone 400 mg twice daily. Due to abdominal pain patient divided by gastroenterology. 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 There is also 9 mm thrombosed right SFA aneurysm. Vascular surgery was involved. Dr. Dacosta contacted Dr. Bustamante who read to evaluate the patient if transferred to [facility]. We are asked to accept this patient for evaluation. Patient has consumed diet today. She is currently not complaining of any abdominal pain. She is hemodynamically stable. In reviewing her labs her hemoglobin is 10.8. Normal white blood cell count. Her INR is 2.2. Her creatinine is 0.6. DS: Diagnosis Discharge Diagnosis (1) Chronic mesenteric ischemia: Status: Chronic DS: Summary Mrs. Meyer is a 73-year-old female. She was admitted secondary to abdominal symptoms. She is been having chronic problems with mesenteric ischemia. These had worsened. Imaging performed showed that the SMA was not able to be stented but her celiac artery was capable being stented. Coumadin held. Yesterday she had celiac artery stents placed. She tolerated the procedure well. She is doing well today. No further symptoms when she eats. Medically she is stable for discharge to home today. She will resume Coumadin and Plavix. Discharge home today with home health PT. Follow-up with vascular surgery as an outpatient. Time Spent with Patient Total time spent providing and/or coordinating discharge services: Less than 30 minutes Results Labs on day of discharge: Labs from last 24 hours 06/26/18 06/26/18 06/26/18 05:05 05:05 05:05 WBC 5.4 RBC 3.18 L Hgb 11.2 L Hct 32.4 L MCV 101.9 H MCH 35.1 H MCHC 34.5 RDW 14.2 Plt Count 206 MPV 6.3 L Neut % (Auto) 71.1 H Lymph % (Auto) 14.4 [place] % (Auto) 11.4 H Eos % (Auto) 2.5 Baso % (Auto) 0.6 Neut # (Auto) 3.8 Lymph # (Auto) 0.8 L [place] # (Auto) 0.6 Eos # (Auto) 0.1 Baso # (Auto) 0.0 WBC Differential . Differential Comment Auto diff final PT 14.2 H INR 1.4 Sodium 137 Potassium 4.0 Chloride 104 Carbon Dioxide 23.8 Anion Gap 9 BUN 8 Creatinine 0.61 Estimated GFR Greater than 89 Random Glucose 75 Calcium 7.8 L Total Bilirubin 0.9 AST 10 L ALT 18 Alkaline Phosphatase 61 Total Protein 5.8 L Albumin 2.9 L Impressions ITS Impressions Chest X-Ray 06/22/18 17:56 CONCLUSION: Left lower lung partially consolidative infiltrate. Abdomen X-Ray 06/23/18 00:00 CONCLUSION: Nonspecific bowel gas pattern, only minimal stool. Discharge Plan Discharge Disposition Patient Disposition: /Home Health Service Discharge Condition Condition: Stable Discharge Order Discharge Orders: Discharge Order (Routine); Ordered 06/26/18 Ordered By: Weston Mcgraw Discharge Details Anticipated Discharge Date: 06/26/18 Physicians Team Primary Care Provider: UNKNOWN, Attending Provider: Weston Mcgraw Other Providers: Magdy Bustamante Rxs /Orders / Referrals /Forms Prescriptions: New clopidogrel [Plavix] 75 mg Tablet 1 mg/kg PO DAILY Qty: 45 RF: 0 Referrals: Den Rankin MD [Physician] - See Instructions (office will call with appointment ) UNKNOWN, [Primary Care Provider] - See Instructions Discharge Instructions Patient Printed Instructions: Angiogram (DC)
[2018-06-26 12:54] VITALS: BP 111/61; PULSE 80; TEMP 98.6; O2SAT 97
== END 2018-06-26 14:00 | disposition home health service (06) | DRG 357 ==
LOC: HCVI 17:29 → HCPC 06-24 13:15
PROVIDERS: ADMIT Hospitalist; ATTEND Hospitalist
PROC: ANGIOLE (2018-06-25 11:00)
CPT/HCPCS: 37236; 37250; 37252; 71010; 71045; 74000; 74018; 75625; 75726; 80048; 80053; 81001; 82140; 82150; 82550; 82948; 82962; 83605; 83690; 83735; 84100; 84443; 85025; 85384; 85610; 85730; 87641; 93005; 94150; 97110; 97162; 97530; 99152; 99153; C1725; C1753; C1756; C1760; C1769; C1887; C1893; C9113; G0269; J0692; J1644; J2250; J2405; J3010; J7120; Q9967